=== PATIENT | female | born 1935 | race Hispanic/Latino ===

== ENCOUNTER 2018-01-14 12:26 | Observation (INO) | payer OTHER ==
--- NOTE | 2018-01-14 13:03 | RAD REPORT ---
EXAM DESCRIPTION: CT - Ct Stroke Brain Wo Cont - 01/14/2018 12:51 pm CLINICAL HISTORY: DIZZINESS CVA COMPARISON: Head Brain Wo Cont dated 08/07/2016; Head Brain Wo Cont dated 07/18/2016 TECHNIQUE: All CT scans are performed using dose optimization technique as appropriate and may inclu de automated exposure control or mA/KV adjustment according to patient size. FINDINGS: No intracranial hemorrhage, hydrocephalus or extra-axial fluid collection.Mild generalized brain atrophy is present with mild periventricular and deep white matter chronic microvascular ische mu changes.No areas of brain edema or evidence of midline shift. The paranasal sinuses and mastoids are clear. The calvarium is intact. IMPRESSION: No acute intracranial abnormality. The findings were discussed with Dr. French on 01/14/2018 at 12:55 p.m. by telephone.
--- NOTE | 2018-01-14 13:17 | RAD REPORT ---
EXAM DESCRIPTION: RAD - Chest Single View - 01/14/2018 1:11 pm CLINICAL HISTORY: Hypertension Chest pain. COMPARISON: Chest Single View dated 08/07/2016; Chest Single View dated 07/19/2016; Chest Single View dated 07/18/2016; CHEST SINGLE VIEW dated 10/16/2011 FINDINGS: Portable technique limits examination quality. The lungs are grossly clear. The heart is normal in size. No displaced fractures. IMPRESSION: No acute intrathoracic process suspected.
[2018-01-14] MEDS ORDERED: ENALAPRILAT 1.25 MG/ML VIAL IV ONE (13:18)
[2018-01-14 13:23] LABS: Albumin 3.5 g/dL (3.4-5.0); Bilirubin Direct 0.2 mg/dL (0-0.2); Bilirubin Total 0.6 mg/dL (0.2-1.0); Magnesium 1.8 mg/dL (1.8-2.4); Potassium 3.3 mmol/L (3.5-5.1); Protein, Total 7.6 g/dL (6.4-8.2)
[2018-01-14 13:33] LABS: Protime INR 0.96
[2018-01-14 13:35] LABS: Absolute Lymphocytes (CBC) 1.5 K/uL (0.7-4.9); Absolute Monocytes 0.6 K/uL (0.1-1.3); Absolute Neutrophil 6.1 K/uL (1.8-8.0); Basophils % 1.2 % (0-1.3); Eosinophils % 0.5 % (0-4.4); Lymphocytes % 18.3 % (15.3-44.8); MCH 29.2 pg (27.0-35.0); MCV 87.3 fL (80-100); MPV 9.8 fL (7.6-11.3); Monocytes % 7.3 % (3.3-12.3); RBC Red Blood Cell Count 4.35 M/uL (3.86-4.86)
[2018-01-14 15:48] LABS: Urine Blood NEGATIVE (NEG); Urine Glucose 1+ (NEG); Urine Protein NEGATIVE (NEG)
--- NOTE | 2018-01-14 16:19 | EDPHYS ---
Physician Documentation [facility] Name: Valerie Hart Age: 82 yrs Sex: Female : 1935 Arrival Date: 01/14/2018 Time: 12:29 Bed 20 Private MD: Ted Méndez F ED Physician Maurice French HPI: 01/14 12:30 This 82 yrs old Female presents to ER via Wheelchair with complaints of gs Dizziness. 16:09 The patient presents with feeling faint, feeling off balance. Onset: The gs symptoms/episode began/occurred acutely, just prior to arrival, 1 hour(s) ago, at 11:30. Modifying factors: the symptoms are aggravated by standing up. Associated signs and symptoms: Pertinent negatives: agitation, blurred vision, chest pain, confusion. Severity of symptoms: At their worst the symptoms were severe in the emergency department the symptoms have improved moderately. The patient has not experienced similar symptoms in the past. The patient has not recently seen a physician. 16:18 Associated signs and symptoms: Pertinent positives: near-syncope. gs Historical: - Allergies: 12:39 Vnyhctt-Npv-Twt Reductase Inhibitors; la1 - Home Meds: 13:07 Humulin R 100 unit/mL soln 5 units with meals [Active]; metformin 1,000 mg Oral tab 1 em tab 2 times per day [Active]; lisinopril 20 mg Oral tab 1 tab once daily [Active]; 17:55 Lantus 100 unit/mL Sub-Q soln 40 units daily [Active]; metoprolol tartrate 50 mg oral em tab 1 tab 2 times per day [Active]; - PMHx: 12:39 Diabetes - NIDDM; Hypertension; la1 - Immunization history:: Adult Immunizations unknown. - Social history:: Smoking status: unknown. - Ebola Screening: : No symptoms or risks identified at this time. ROS: 16:09 All other systems are negative. gs Exam: 16:09 Head/Face: Normocephalic, atraumatic. Eyes: Pupils equal round and reactive to light, gs extra-ocular motions intact. Lids and lashes normal. Conjunctiva and sclera are non-icteric and not injected. Cornea within normal limits. Periorbital areas with no swelling, redness, or edema. ENT: Nares patent. No nasal discharge, no septal abnormalities noted. Tympanic membranes are normal and external auditory canals are clear. Oropharynx with no redness, swelling, or masses, exudates, or evidence of obstruction, uvula midline. Mucous membranes moist. Neck: Trachea midline, no thyromegaly or masses palpated, and no cervical lymphadenopathy. Supple, full range of motion without nuchal rigidity, or vertebral point tenderness. No Meningismus. Chest/axilla: Normal chest wall appearance and motion. Nontender with no deformity. No lesions are appreciated. Cardiovascular: Regular rate and rhythm with a normal S1 and S2. No gallops, murmurs, or rubs. Normal PMI, no JVD. No pulse deficits. Respiratory: Lungs have equal breath sounds bilaterally, clear to auscultation and percussion. No rales, rhonchi or wheezes noted. No increased work of breathing, no retractions or nasal flaring. Abdomen/GI: Soft, non-tender, with normal bowel sounds. No distension or tympany. No guarding or rebound. No evidence of tenderness throughout. Back: No spinal tenderness. No costovertebral tenderness. Full range of motion. Skin: Warm, dry with normal turgor. Normal color with no rashes, no lesions, and no evidence of cellulitis. MS/ Extremity: Pulses equal, no cyanosis. Neurovascular intact. Full, normal range of motion. Neuro: Awake and alert, GCS 15, oriented to person, place, time, and situation. Cranial nerves II-XII grossly intact. Motor strength 5/5 in all extremities. Sensory grossly intact. Cerebellar exam normal. Normal gait. 16:09 Constitutional: The patient appears alert, awake. 16:09 ECG was reviewed by the Attending Physician. Vital Signs: 12:39 BP 247 / 88; Pulse 73; Resp 16; Temp 97.3; Pulse Ox 100% on R/A; Weight 61.69 kg; la1 Height 5 ft. 4 in. (162.56 cm); 13:21 BP 216 / 77; Pulse 69; Resp 16; Pulse Ox 100% on R/A; la1 13:45 BP 180 / 55; Pulse 62; Resp 15; Pulse Ox 97% on R/A; em 14:04 BP 182 / 58; Pulse 70; Resp 18; Pulse Ox 100% on R/A; Pain 0/10; em 14:24 BP 168 / 52; Pulse 65; Resp 14; Pulse Ox 98% on R/A; em 15:00 BP 184 / 59; Pulse 67; Resp 18; Pulse Ox 99% on R/A; Pain 0/10; em 15:30 BP 183 / 92; Pulse 66; Resp 16; Pulse Ox 99% on R/A; em 16:29 BP 201 / 65; Pulse 67; Resp 16; Pulse Ox 99% on R/A; em 17:23 BP 206 / 61; Pulse 63; Resp 18; Pulse Ox 100% on R/A; Pain 0/10; em 17:53 BP 210 / 69; Pulse 65; Resp 17; Temp 97.7; Pulse Ox 99% on R/A; Pain 0/10; em 12:39 Body Mass Index 23.34 (61.69 kg, 162.56 cm) la1 NIH Stroke Scale Scores: 12:39 NIHSS Score: 1 la1 16:09 NIHSS Score: 0 gs MDM: 12:58 Patient medically screened. 16:09 Differential diagnosis: cardiac arrhythmia, CVA, TIA, vertigo. Data reviewed: vital gs signs, nurses notes. Response to treatment: the patient's symptoms have markedly improved after treatment. ED course: NO TPA NOT A STROKE SYMPTOMS COMPLETELY RESOLVED. 01/14 12:59 Order name: Basic Metabolic Panel; Complete Time: 13:37 01/14 12:59 Order name: CBC with Diff; Complete Time: 13:37 01/14 12:59 Order name: CPK; Complete Time: 13:37 01/14 12:59 Order name: LFT's; Complete Time: 13:37 01/14 12:59 Order name: Magnesium; Complete Time: 13:37 01/14 12:59 Order name: NT PRO-BNP; Complete Time: 13:37 01/14 12:44 Order name: CT Stroke Brain w/o Contrast; Complete Time: 13:37 la1 01/14 12:59 Order name: PT-INR; Complete Time: 13:37 01/14 12:59 Order name: Troponin (emerg Dept Use Only); Complete Time: 13:37 01/14 12:59 Order name: XRAY Chest (1 view); Complete Time: 13:37 01/14 15:35 Order name: Urine Dipstick--Ancillary (enter results); Complete Time: 16:00 ag 01/14 16:28 Order name: Troponin I [facility] 01/14 16:28 Order name: Troponin I [facility] 01/14 16:28 Order name: Troponin I [facility] 01/14 12:59 Order name: EKG; Complete Time: 12:59 01/14 12:59 Order name: Cardiac monitoring; Complete Time: 13:06 01/14 12:59 Order name: EKG - Nurse/Tech; Complete Time: 13:06 01/14 12:59 Order name: IV Saline Lock; Complete Time: 13:06 01/14 12:59 Order name: Labs collected and sent; Complete Time: 13:06 01/14 12:59 Order name: O2 Per Protocol; Complete Time: 13:06 01/14 12:59 Order name: O2 Sat Monitoring; Complete Time: 13:06 01/14 12:59 Order name: Urine Dipstick-Ancillary (obtain specimen); Complete Time: 17:09 01/14 16:28 Order name: Consistent Carb (ADA) [address] [facility] 01/14 16:28 Order name: Stroke Protocol EDMS EC:09 Rate is 76 beats/min. Rhythm is regular. ME interval is normal. QRS interval is gs prolonged. QT interval is normal. Q waves are Old in lead V1. T waves are Flattened. Clinical impression: NSR w/ Non-specific ST/T Changes. Interpreted by me. Administered Medications: 13:21 Drug: Enalaprilat 0.625 mg Route: IV; Rate: calculated rate; Site: left antecubital; la1 13:23 Follow up: IV Status: Completed infusion la1 16:41 Drug: Aspirin Chewable Tablet 324 mg Route: PO; em 16:58 Follow up: Response: No adverse reaction em 17:35 Drug: Metoprolol 50 mg Route: PO; em 18:01 Follow up: Response: No adverse reaction em Point of Care Testing: Blood Glucose: 12:39 Blood Glucose: 158 mg/dL; la1 Ranges: Critical Glucose Levels:Adult <50 mg/dl or >400 mg/dl <40 mg/dl or >180 mg/dl Disposition: 01/14/18 16:18 Hospitalization ordered by Ted Méndez for Observation. Preliminary diagnosis are Dizziness and giddiness, Syncope and collapse. - Bed requested for Telemetry/MedSurg (observation). - Status is Observation. em - Condition is Stable. - Problem is new. - Symptoms have improved. UTI on Admission? No NIH Stroke Scale - NIH Stroke Score Date: 01/14/2018 Time: 12:39 Total Score = 1 1a. Level of Consciousness (LOC) - 0(Alert) 1b. Level of Consciousness (LOC) (Year \T\ Age) - 0(Both) 1c. LOC Commands (Open \T\ Closes Eyes/Associate Scientist) - 0(Both) 2. Best Gaze (Lateral Gaze Paresis) - 0(Normal) 3. Visual Field Loss - 0(No visual loss) 4. Facial Palsy - 1(Minor Paralysis) 5a. Left Arm: Motor (10-second hold) - 0(No drift) 5b. Right Arm: Motor (10-second hold) - 0(No drift) 6a. Left Leg: Motor (5-second hold - always test supine) - 0(No drift) 6b. Right Leg: Motor (5-second hold - always test supine) - 0(No drift) 7. Limb Ataxia (finger/nose \T\ heel/guerrero - test with eyes open) - 0(Absent) 8. Sensory Loss (pinprick arms/legs/face) - 0(Normal) 9. Best Language: Aphasia (description/naming/reading) - 0(No aphasia) 10. Dysarthria (speech clarity - read or repeat words) - 0(Normal) 11. Extinction and Inattention (visual/tactile/auditory/spatial/personal) - 0(No abnormality) Initials: la1 NIH Stroke Scale - NIH Stroke Score Date: 01/14/2018 Time: 16:09 Total Score = 0 1a. Level of Consciousness (LOC) - 0(Alert) 1b. Level of Consciousness (LOC) (Year \T\ Age) - 0(Both) 1c. LOC Commands (Open \T\ Closes Eyes/Associate Scientist) - 0(Both) 2. Best Gaze (Lateral Gaze Paresis) - 0(Normal) 3. Visual Field Loss - 0(No visual loss) 4. Facial Palsy - 0(Normal) 5a. Left Arm: Motor (10-second hold) - 0(No drift) 5b. Right Arm: Motor (10-second hold) - 0(No drift) 6a. Left Leg: Motor (5-second hold - always test supine) - 0(No drift) 6b. Right Leg: Motor (5-second hold - always test supine) - 0(No drift) 7. Limb Ataxia (finger/nose \T\ heel/guerrero - test with eyes open) - 0(Absent) 8. Sensory Loss (pinprick arms/legs/face) - 0(Normal) 9. Best Language: Aphasia (description/naming/reading) - 0(No aphasia) 10. Dysarthria (speech clarity - read or repeat words) - 0(Normal) 11. Extinction and Inattention (visual/tactile/auditory/spatial/personal) - 0(No abnormality) Initials: Signatures: Dispatcher [employer] Ami Calabrese RN RN Wayne Prasad LVN LVN Jason Blevins RN RN la1 Lavern Cavazos Gregory, MD MD Corrections: (The following items were deleted from the chart) 16:16 16:09 Onset: The symptoms/episode began/occurred acutely, just prior to gs arrival, 1 hour(s) ago, 16:16 16:09 This 82 yrs old Female presents to ER via Wheelchair with complaints of Dizziness. 16:53 16:18 Hospitalization Ordered by Ted Méndez MD for Observation. Preliminary ag diagnosis is Dizziness and giddiness; Syncope and collapse. Bed requested for Telemetry/MedSurg (observation). Status is Observation. Condition is Stable. Problem is new. Symptoms have improved. UTI on Admission? No. gs 16:53 16:53 01/14/2018 16:18 Hospitalization Ordered by Ted Méndez MD for dw Observation. Preliminary diagnosis is Dizziness and giddiness; Syncope and collapse. Bed requested for Telemetry/MedSurg (observation). Status is Observation. Condition is Stable. Problem is new. Symptoms have improved. UTI on Admission? No. ag 17:55 13:07 Home Meds: Lantus 100 unit/mL Sub-Q soln 65 units daily; em em 17:55 13:07 Home Meds: Metoprolol Tartrate Oral; em em 18:02 16:53 01/14/2018 16:18 Hospitalization Ordered by Ted Méndez MD for em Observation. Preliminary diagnosis is Dizziness and giddiness; Syncope and collapse. Bed requested for Telemetry/MedSurg (observation). Status is Observation. Condition is Stable. Problem is new. Symptoms have improved. UTI on Admission? No. dw
--- NOTE | 2018-01-14 16:19 | ER ---
Nurse's Notes [facility] Name: Valerie Hart Age: 82 yrs Sex: Female : 1935 Arrival Date: 01/14/2018 Time: 12:29 Bed 20 Private MD: Ted Méndez F Diagnosis: Dizziness and giddiness;Syncope and collapse Presentation: 01/14 12:37 Presenting complaint: Patient states: Sudden onset dizziness at 1200 today, no acute la1 neurological deficits noted. Transition of care: patient was not received from another setting of care. Onset of symptoms was January 14, 2018. Risk Assessment: Do you want to hurt yourself or someone else? Patient reports no desire to harm self or others. Initial Sepsis Screen: Does the patient meet any 2 criteria? No. Patient's initial sepsis screen is negative. Does the patient have a suspected source of infection? No. Patient's initial sepsis screen is negative. Care prior to arrival: None. 12:37 Method Of Arrival: Wheelchair la1 12:37 Acuity: FORD 2 la1 Historical: - Allergies: 12:39 Zqpchlx-Mac-Yvg Reductase Inhibitors; la1 - Home Meds: 13:07 Humulin R 100 unit/mL soln 5 units with meals [Active]; metformin 1,000 mg Oral tab 1 em tab 2 times per day [Active]; lisinopril 20 mg Oral tab 1 tab once daily [Active]; 17:55 Lantus 100 unit/mL Sub-Q soln 40 units daily [Active]; metoprolol tartrate 50 mg oral em tab 1 tab 2 times per day [Active]; - PMHx: 12:39 Diabetes - NIDDM; Hypertension; la1 - Immunization history:: Adult Immunizations unknown. - Social history:: Smoking status: unknown. - Ebola Screening: : No symptoms or risks identified at this time. Screenin:35 Abuse screen: Denies threats or abuse. Nutritional screening: No deficits noted. em Tuberculosis screening: No symptoms or risk factors identified. Patient has been NPO before screening. The patient is alert, able to follow commands. The patient does not exhibit slurred or garbled speech The patient is not exhibiting difficulty speaking. The patient does not exhibit difficulty understanding words. The patient is able to swallow own secretions with no drooling or need for suction. Patient tolerated one teaspoon of water. No drooling, immediate coughing, gurgling, or clearing of the throat was noted. The patient tolerated 90mL of water. No drooling, immediate coughing, gurgling, or clearing of the throat was noted. The patient passed the bedside swallow screening. Oral medications may be given as ordered. Contact Physician for further diet orders. Provider notified of bedside swallow screening results: Maurice French MD. Fall Risk None identified. Assessment: 12:43 Reassessment: Code stroke called 1240, in CT at 1242. la1 12:51 Reassessment: Dr. Saeed reports CT was negative, Dr. French notified. iw 12:53 Reassessment: Dr. French at bedside. em 12:55 General: Appears uncomfortable, Behavior is calm, cooperative, anxious. Pain: Denies em pain. Neuro: Level of Consciousness is awake, alert, obeys commands, Oriented to person, place, time, situation, Magnetic Tape Typewriter Operator are equal bilaterally Moves all extremities. Gait is steady, Speech is normal, Facial symmetry appears normal, Pupils are PERRLA, Intact. Cardiovascular: Capillary refill < 3 seconds Patient's skin is warm and dry. Respiratory: Airway is patent Respiratory effort is even, unlabored, Respiratory pattern is regular, symmetrical, Breath sounds are clear bilaterally. GI: Abdomen is non-distended. : No signs and/or symptoms were reported regarding the genitourinary system. EENT: No signs and/or symptoms were reported regarding the EENT system. Derm: Skin is intact, Skin is pink, warm \T\ dry. Musculoskeletal: Circulation, motion, and sensation intact. Capillary refill < 3 seconds, Range of motion: intact in all extremities. 13:10 Reassessment: Patient appears in no apparent distress at this time. I agree with above iw assessment by Wayne Jara LVN. 13:34 Reassessment: Patient appears in no apparent distress at this time. Patient and/or em family updated on plan of care and expected duration. Pain level reassessed. Patient is alert, oriented x 3, equal unlabored respirations, skin warm/dry/pink. Patient denies pain at this time. 14:04 Reassessment: Patient appears in no apparent distress at this time. pt reports symptoms em have resolved. 15:00 Reassessment: Patient appears in no apparent distress at this time. Patient and/or em family updated on plan of care and expected duration. Pain level reassessed. Patient is alert, oriented x 3, equal unlabored respirations, skin warm/dry/pink. Patient denies pain at this time. Patient states feeling better. Patient states symptoms have improved. 15:30 Reassessment: Patient appears in no apparent distress at this time. Patient and/or em family updated on plan of care and expected duration. Pain level reassessed. Patient is alert, oriented x 3, equal unlabored respirations, skin warm/dry/pink. pt ambulated to restroom with assistance and became dizzy, pt ambulated back to bed and assisted back into bed, BP 183/92, HR 68, SPO2 99% RA, Dr. French notified. 16:29 Reassessment: Patient appears in no apparent distress at this time. Patient and/or em family updated on plan of care and expected duration. Pain level reassessed. Patient is alert, oriented x 3, equal unlabored respirations, skin warm/dry/pink. Patient states symptoms have improved. 17:15 Reassessment: Patient appears in no apparent distress at this time. attempted to call em report to the floor, unable due to nurse starting blood products, will attempt again later. 17:35 Reassessment: Patient appears in no apparent distress at this time. BP 206/61, HR em 57-63, Dr. French notified, pt can take home medications, Metoprolol 50 mg given at this time. Vital Signs: 12:39 BP 247 / 88; Pulse 73; Resp 16; Temp 97.3; Pulse Ox 100% on R/A; Weight 61.69 kg; la1 Height 5 ft. 4 in. (162.56 cm); 13:21 BP 216 / 77; Pulse 69; Resp 16; Pulse Ox 100% on R/A; la1 13:45 BP 180 / 55; Pulse 62; Resp 15; Pulse Ox 97% on R/A; em 14:04 BP 182 / 58; Pulse 70; Resp 18; Pulse Ox 100% on R/A; Pain 0/10; em 14:24 BP 168 / 52; Pulse 65; Resp 14; Pulse Ox 98% on R/A; em 15:00 BP 184 / 59; Pulse 67; Resp 18; Pulse Ox 99% on R/A; Pain 0/10; em 15:30 BP 183 / 92; Pulse 66; Resp 16; Pulse Ox 99% on R/A; em 16:29 BP 201 / 65; Pulse 67; Resp 16; Pulse Ox 99% on R/A; em 17:23 BP 206 / 61; Pulse 63; Resp 18; Pulse Ox 100% on R/A; Pain 0/10; em 17:53 BP 210 / 69; Pulse 65; Resp 17; Temp 97.7; Pulse Ox 99% on R/A; Pain 0/10; em 12:39 Body Mass Index 23.34 (61.69 kg, 162.56 cm) la1 NIH Stroke Scale Scores: 12:39 NIHSS Score: 1 la1 16:09 NIHSS Score: 0 ED Course: 12:29 Patient arrived in ED. mr 12:29 Ted Méndez MD is Private Physician. mr 12:38 Triage completed. la1 12:39 Arm band placed on left wrist. la1 12:51 CT Stroke Brain w/o Contrast In Process Unspecified. EDMS 12:53 Maurice French MD is Attending Physician. gs 12:55 Patient has correct armband on for positive identification. Placed in gown. Bed in low em position. Call light in reach. Side rails up X2. Adult w/ patient. 12:56 Wayne Jara LVN is Primary Nurse. em 13:09 EKG done, by isotope technologist. reviewed by Maurice French MD. dt2 13:12 XRAY Chest (1 view) In Process Unspecified. EDMS 16:17 Ted Méndez MD is Hospitalizing Provider. gs 16:58 No provider procedures requiring assistance completed. IV discontinued, intact, em bleeding controlled, No redness/swelling at site. Pressure dressing applied. Administered Medications: 13:21 Drug: Enalaprilat 0.625 mg Route: IV; Rate: calculated rate; Site: left antecubital; la1 13:23 Follow up: IV Status: Completed infusion la1 16:41 Drug: Aspirin Chewable Tablet 324 mg Route: PO; em 16:58 Follow up: Response: No adverse reaction em 17:35 Drug: Metoprolol 50 mg Route: PO; em 18:01 Follow up: Response: No adverse reaction em Point of Care Testing: Blood Glucose: 12:39 Blood Glucose: 158 mg/dL; la1 Ranges: Outcome: 16:18 Decision to Hospitalize by Provider. 17:52 Admitted to Tele accompanied by tech, family with patient, via stretcher, room 425, em with chart, Report called to FIOR Whitt 17:52 Condition: good 17:52 Instructed on the need for admit, Demonstrated understanding of instructions. 18:02 Patient left the ED. em NIH Stroke Scale - NIH Stroke Score Date: 01/14/2018 Time: 12:39 Total Score = 1 1a. Level of Consciousness (LOC) - 0(Alert) 1b. Level of Consciousness (LOC) (Year \T\ Age) - 0(Both) 1c. LOC Commands (Open \T\ Closes Eyes/Rubber Stamp Dies Inspector) - 0(Both) 2. Best Gaze (Lateral Gaze Paresis) - 0(Normal) 3. Visual Field Loss - 0(No visual loss) 4. Facial Palsy - 1(Minor Paralysis) 5a. Left Arm: Motor (10-second hold) - 0(No drift) 5b. Right Arm: Motor (10-second hold) - 0(No drift) 6a. Left Leg: Motor (5-second hold - always test supine) - 0(No drift) 6b. Right Leg: Motor (5-second hold - always test supine) - 0(No drift) 7. Limb Ataxia (finger/nose \T\ heel/guerrero - test with eyes open) - 0(Absent) 8. Sensory Loss (pinprick arms/legs/face) - 0(Normal) 9. Best Language: Aphasia (description/naming/reading) - 0(No aphasia) 10. Dysarthria (speech clarity - read or repeat words) - 0(Normal) 11. Extinction and Inattention (visual/tactile/auditory/spatial/personal) - 0(No abnormality) Initials: la1 NIH Stroke Scale - NIH Stroke Score Date: 01/14/2018 Time: 16:09 Total Score = 0 1a. Level of Consciousness (LOC) - 0(Alert) 1b. Level of Consciousness (LOC) (Year \T\ Age) - 0(Both) 1c. LOC Commands (Open \T\ Closes Eyes/Rubber Stamp Dies Inspector) - 0(Both) 2. Best Gaze (Lateral Gaze Paresis) - 0(Normal) 3. Visual Field Loss - 0(No visual loss) 4. Facial Palsy - 0(Normal) 5a. Left Arm: Motor (10-second hold) - 0(No drift) 5b. Right Arm: Motor (10-second hold) - 0(No drift) 6a. Left Leg: Motor (5-second hold - always test supine) - 0(No drift) 6b. Right Leg: Motor (5-second hold - always test supine) - 0(No drift) 7. Limb Ataxia (finger/nose \T\ heel/guerrero - test with eyes open) - 0(Absent) 8. Sensory Loss (pinprick arms/legs/face) - 0(Normal) 9. Best Language: Aphasia (description/naming/reading) - 0(No aphasia) 10. Dysarthria (speech clarity - read or repeat words) - 0(Normal) 11. Extinction and Inattention (visual/tactile/auditory/spatial/personal) - 0(No abnormality) Initials: Signatures: Dispatcher [employer] Juju Orozco mr Marek, Wayne, CHASER TAR CHASER TAR em Yari Dewitt RN RN Jason Garcia RN RN la1 Maurice French MD MD gs Teague, Danielle dt2 Corrections: (The following items were deleted from the chart) 17:55 13:07 Home Meds: Lantus 100 unit/mL Sub-Q soln 65 units daily; [facility] 17:55 13:07 Home Meds: Metoprolol Tartrate Oral; em
[2018-01-14] MEDS ORDERED: ACETAMINOPHEN 500 MG TAB PO PRN (16:21)
[2018-01-14] MEDS ORDERED: ASPIRIN 81 MG CHEWABLE TABLET ONE (16:38)
--- NOTE | 2018-01-14 17:12 | EKG ---
Test Date: 2018-01-14 Test Time: 12:58:32 Auto Body Worker: BRIDGETT MEASUREMENT RESULTS: Intervals: Rate: 76 MT: 154 QRSD: 100 QT: 410 QTc: 461 [place]: P: 49 MT: 154 QRS: -22 T: 103 INTERPRETIVE STATEMENTS: Normal sinus rhythm Nonspecific ST and T wave abnormality Abnormal ECG Compared to ECG 08/07/2016 13:13:23 ST (T wave) deviation now present Left-axis deviation no longer present Myocardial infarct finding no longer present Electronically Signed On 01-14-18 17:10:32 CDT by Rhys Navarro
[2018-01-14] MEDS ORDERED: METOPROLOL TAR 50 MG TAB ONE (17:34)
[2018-01-14 18:40] VITALS: BMI 23.3
[2018-01-14] MEDS ORDERED: MAGNESIUM SULFATE 1 gm IVPB 1 GM/100 ML BAG IV ONE (21:05)
[2018-01-14] MEDS ORDERED: POTASSIUM 25 MEQ EFFERV TAB PO ONE (21:06)
[2018-01-14] MEDS ORDERED: GLUCAGON 1 MG/VIAL IM PRN (21:14)
[2018-01-14] MEDS ORDERED: D50W 25 GM/50 ML SYRINGE IV PRN (21:14)
[2018-01-14] MEDS: NA CHLORIDE 0.9% 1,000 ML IV SCH (21:41)
[2018-01-14] MEDS: METOPROLOL TAR 50 MG TAB PO SCH (22:11)
[2018-01-14] MEDS: METFORMIN HCL 500 MG TAB PO SCH (22:12)
[2018-01-14] MEDS: INSULIN -REGULAR HUMAN 50 UNIT/0.5 ML ML SQ SCH (22:23)
--- NOTE | 2018-01-14 22:45 | RAD REPORT ---
EXAM DESCRIPTION: MRI - Brain W/Wo Cont - 01/14/2018 9:30 pm CLINICAL HISTORY: Dizziness, vertigo, stroke-like symptoms COMPARISON: CT head same date TECHNIQUE: Sagittal and axial T1-weighted images were obtained. Axial PD/heavily T2-weighted and T2- FLAIR images were obtained along with axial DWI/ADC mapping sequences. Coronal heavily T2 weighted s equence obtained. Axial and coronal post-contrast T1-weighted images were also obtained. A 14 ml Mag nevist contrast following utilized. FINDINGS: No intracranial hemorrhage, mass or acute infarction. There is no edema or shift of midli ne structures. No extra-axial fluid collections. [place]-matter/white matter junction is preserved. Sig nal voids are seen as a normal finding in the major intracranial vessels. Mild atrophy and chronic is chemic changes are present. Ventricles are in proportion to volume loss. Post-contrast images show normal enhancement. No dural thickening. Mastoid air cells and paranasal sinuses are clear. IMPRESSION: Negative contrast enhanced MRI of the Brain for acute finding. Mild atrophy and chronic ischemic change.
--- NOTE | 2018-01-14 22:48 | RAD REPORT ---
EXAM DESCRIPTION: MRI - MRA Head Wo Cont - 01/14/2018 9:29 pm CLINICAL HISTORY: Stroke-like symptoms COMPARISON: None. TECHNIQUE: Axial and coronal 3D efbr-zi-ekrcvc image acquisition was performed. 3D rotational images were generated with source and reconstruction images reviewed. FINDINGS: No aneurysm or vascular malformation. No basilar or internal carotid artery stenosis. Bila teral middle cerebral artery branches show atherosclerotic change in the proximal M2 branches. No sig nificant anterior cerebral disease. There is significant atherosclerotic change in the posterior cere bral artery P1 and P2 branches. Right posterior communicating artery is present. IMPRESSION: Significant atherosclerotic change in the bilateral middle and posterior cerebral artery distributions. No stenosis of the basilar or internal carotid arteries.
--- NOTE | 2018-01-14 22:51 | RAD REPORT ---
EXAM DESCRIPTION: MRI - MRA Neck W/Wo Cont - 01/14/2018 9:30 pm CLINICAL HISTORY: Stroke-like symptoms, CVA COMPARISON: MRI and CT study same date TECHNIQUE: MR angiography of the cervical vasculature performed. A 14 milliliter Magnevist contrast volume was utilized. Coronal imaging acquisitions performed. Maximum intensity projection protocol us ed to generate 3D rotational views. FINDINGS: Aortic arch is 3 vessel. No origin stenosis. No vertebral artery origin stenosis seen. Co dominant vertebral arteries show no dissection or significant atherosclerotic change. Common carotid and internal carotid arteries also without evidence for dissection or significant atherosclerotic tommy nge. No aneurysm or vascular malformation. IMPRESSION: Contrast enhanced MRA neck imaging shows no significant vascular finding.
[2018-01-15] MEDS ORDERED: LISINOPRIL 20 MG TAB PO ONE (01:34)
[2018-01-15] MEDS ORDERED: AMLODIPINE 5 MG TAB PO ONE (04:38)
[2018-01-15 05:48] LABS: Absolute Lymphocytes (CBC) 2.4 K/uL (0.7-4.9); Absolute Monocytes 0.6 K/uL (0.1-1.3); Absolute Neutrophil 3.5 K/uL (1.8-8.0); Basophils % 1.8 % (0-1.3); Eosinophils % 1.1 % (0-4.4); Hematocrit 35.6 % (36.0-45.0); Lymphocytes % 35.8 % (15.3-44.8); MCH 30.3 pg (27.0-35.0); MCV 86.4 fL (80-100); MPV 9.8 fL (7.6-11.3); Monocytes % 8.4 % (3.3-12.3); RBC Red Blood Cell Count 4.12 M/uL (3.86-4.86)
[2018-01-15 05:58] LABS: Phosphorus 2.7 mg/dL (2.5-4.9); Potassium 3.7 mmol/L (3.5-5.1)
[2018-01-15] MEDS ORDERED: POTASSIUM 25 MEQ EFFERV TAB PO ONE (06:01)
[2018-01-15] MEDS: NA CHLORIDE 0.9% 1,000 ML IV SCH ×2 (06:28→12:02)
[2018-01-15] MEDS ORDERED: INSULIN -REGULAR HUMAN 50 UNIT/0.5 ML ML SQ SCH (07:30)
[2018-01-15] MEDS: INSULIN -REGULAR HUMAN 50 UNIT/0.5 ML ML SQ SCH ×2 (07:30→11:30)
[2018-01-15] MEDS: METFORMIN HCL 500 MG TAB PO SCH (08:11)
[2018-01-15] MEDS: METOPROLOL TAR 50 MG TAB PO SCH (08:12)
[2018-01-15] MEDS ORDERED: ASPIRIN 81 MG CHEWABLE TABLET PO SCH (09:00)
[2018-01-15] MEDS ORDERED: LISINOPRIL 20 MG TAB PO SCH (09:00)
[2018-01-15] MEDS ORDERED: INSULIN GLARGINE 100 UNITS/ML SQ SCH (09:00)
[2018-01-15] MEDS ORDERED: AMLODIPINE 10 MG TAB PO SCH (09:00)
[2018-01-15 12:31] VITALS: O2SAT 100
[2018-01-15 12:48] VITALS: BP 170/56; TEMP 97.4
--- NOTE | 2018-01-16 12:37 | SS ---
Date of Discharge: 01/15/2018 History Of Present Illness: The patient is an 82-year-old female who has a history of Meniere diseas e, vertigo; however, she was at home when she felt so much dizzy she could not stand up and she felt everything is moving around her. She said she was about to faint, but she did not; however, family a nd her were concerned, she was brought to the emergency room. We put her in for observation for intr actable vertigo along with uncontrolled hypertension. The patient denies any chest pain. No increas ed shortness of breath, and voiced no other complaints. Review of Systems: Neurological: As above. Cardiovascular: No complaint. Genitourinary: No complaint. Skeletomuscular: No complaint. Respiratory: No complaint. Gastrointestinal: No complaint. Past Medical History: 1.Type 2 diabetes. 2.Hypertension. 3.Hyperlipidemia. 4.Meniere disease. Social History: No smoking, alcohol, or drug abuse history. Family History: Noncontributory. Medications: Include amlodipine 5 mg p.o. b.i.d., aspirin 81 mg p.o. daily, Zetia 10 mg p.o. daily, Lantus 65 units subcutaneous daily, regular insulin 5 units subcutaneous before meals, lisinopril 20 mg p.o. daily, metformin 1000 mg p.o. b.i.d., and metoprolol 50 mg p.o. b.i.d. Allergies: NO KNOWN DRUG ALLERGIES. Physical Examination: Vital Signs: Blood pressure 170/55, pulse 64, temperature 97.4. Heart: Regular rate and rhythm. Chest: Clear to auscultation. Abdomen: Soft, benign. Nontender. No hepatosplenomegaly. Bowel sounds are normoactive. Extremities: No edema. No cyanosis. Peripheral pulses are felt. Neurological: Alert and oriented x4. Cranial nerves 2 through 12 intact. Sensory and motor intact. Deep tendon reflexes are normal. Negative Babinski. Diagnostic Data: The patient's brain CT showed no acute changes. Chest x-ray, no acute pathology. CBC nonrevealing. Chemistry nonrevealing except for glucose was in the 250. Cardiac enzymes negativ e. Hospital Course: The patient was admitted for observation. She was started on meclizine along with her home medicines for chronic medical problems, and MRI of the brain and MRA of the carotids were do ne. Those came back negative for any significant vascular obstruction for acute pathology. The nina ent has chronic atherosclerotic ischemic changes, but no acute pathology. The patient's dizziness wa s stopped since she came into the hospital and she was feeling well at this time I think. The patien t is stable enough to be discharged with instructions to use meclizine 25 mg p.o. 3 times a day. I ambreen lso have advised her on a low-salt diet that can also make her vertigo worse and also worsen her bloo d pressure, and I have increased her lisinopril to 30 mg p.o. daily. The patient to follow up with vahid bhatti and bring all her medications on Wednesday. Look discharge orders for details. MFS/MODL Voice ID: [id number] Report ID: [id number]
== END 2018-01-15 16:00 | disposition home or self-care (01) ==
LOC: ER 12:26 → ERHOLD 16:20 → 4TH 17:56
PROVIDERS: ADMIT Internal Medicine; ATTEND Internal Medicine
DX: H81.09 Meniere's disease, unspecified ear (principal); I10 Essential (primary) hypertension; E11.9 Type 2 diabetes mellitus without complications; E78.5 Hyperlipidemia, unspecified
CPT/HCPCS: 36415; 70450; 70544; 70549; 70553; 71045; 80048 ×2; 80076; 81003; 82550; 82962 ×4; 83735 ×2; 83880; 84100; 84484 ×2; 85025 ×2; 85610; 93005; 96374 ×2; 99285; A9577; G0378 ×2; J3475; J7030 ×2

== ENCOUNTER 2022-01-12 17:02 | Observation (INO) | payer OTHER ==
--- OUTSIDE RECORDS SUMMARY | 2022-01-12 17:07 | XMS REPORT | Continuity of Care Document ---
:[address] [facility] t Address [address] [place] [address] [address] [place] [address] Care Team Providers Name Role Phone Asked, No Pcp Primary Care Physician Unavailable Therapy, Adc Covid Infusion Attending Clinician Unavailable Juan C Brown MD Attending Clinician JUAN C BROWN Attending Clinician Unavailable Doctor Unassigned, [employer] Attending Clinician Unavailable CHARLY BELL Attending Clinician Unavailable Payers Payer Name Policy Type Policy Number Effective Date Expiration Date S ource Problems This patient has no known problems. Allergies, Adverse Reactions, Alerts Allergy Allergy Status Severity Reaction(s) Onset Inactive Treating Comm ents Source Name Type Date Date Clinician NETARSUD DRUG Active Unknown-Cmnt Un sh[place] INGREDI 8-05 ity of 00:00: [place] 00 [facility] Branch STATINS- Drug Active SOB Univers HMG-COA Class 8-05 ity of REDUCTAS 00:00: [place] E 00 Medical INHIBITO Branch RS Netarsud Propensi Active Unknown - Uni vers il ty to See comments 805 ity of adverse 00:00: [place] reaction 00 Medical s Branch Statins- Propensi Active Shortness of 0 Univers Hmg-Coa ty to Breath 8-05 ity of Reductas adverse 00:00: [place] e reaction 00 Medical Inhibito s Branch rs NO KNOWN Drug Active Univers ALLERGIE Class ity of S [facility] Social History Social Habit Start Date Stop Date Quantity Comments Source Sex Assigned At [birth year] [facility] [place] 00:00:00 00:00:00 Smoking Status Start Date Stop Date Source Tobacco smoking consumption unknown [facility] [place] Medications Ordered Filled Start Stop Current Ordering Indication Dosage Frequency Signature Comments Components Source Medication Medication Date Date Medication? Clinician (SIG) Name Name tiffanieb 2020- No [id number] 1200mg Univers -imdevimab 01-02 ity of (REGEN-COV 14:15: 14:22 [place] (EUA)) 00 :00 Medical 1,200 mg in Branch NaCl 0.9% (NS) 60 mL IV infusion casiriyvettemab 2020- No [id number] 1200mg 1,200 mg, Univers -imdevimab 01-02 IV ity of (REGEN-COV 14:15: 14:22 [place], [place] (EUA[place] 00 :00 ONCE, Luz Medical 1,200 mg in 01/02/21 at [facility] NaCl 0.9% 0915, For (NS) 60 mL 1 IV infusion dose
Ad liquor bridge operator as an IV infusion via pump or gravity over at least 60 minutes through an intravenou s line containing a sterile, in-line or add-on 0.2-micron polyethers ulfone (PES) filter.&nb sp;Stable 36 hours refrigerat ed; 4 hours at room temperatur e. &nbs p;
No known No Univers medications [facility] Vital Signs Vital Name Observation Time Observation Value Comments Source Systolic blood 2021-01-02 15:00:00 146 mm[Hg] Univer sity of pressure [facility] Diastolic blood 2021-01-02 15:00:00 58 mm[Hg] [facility] Heart rate 2021-01-02 15:00:00 100 /min [facility] Body temperature 2021-01-02 15:00:00 37 Erika [facility] Respiratory rate 2021-01-02 15:00:00 18 /min [facility] Oxygen saturation in 2021-01-02 15:00:00 99 /min [facility] Arterial blood by [facility] [place] [facility] Pulse oximetry [place] Body height 2021-01-02 13:09:00 162.6 cm [facility] Body weight 2021-01-02 13:09:00 60.782 kg [facility] BMI 2021-01-02 13:09:00 23.00 kg/m2 [facility] Procedures Procedure Date / Time Performed Performing Clinician Alexsandra bhatti [id number] CONSENT 2021-01-02 05:01:00 Doctor Unassigned, No Unive [facility] Plan of Care Planned Activity Planned Date Details Comments Source Future Scheduled 2021-07-01 COVID-19 VACCINE (1) [facility] Test 19:31:02 [code = COVID-19 VACCINE (1)] Future Scheduled 2021-07-01 65+ [facility]OCOCCAL [facility] Test 19:31:02 VACCINE (1 of 2 - PPSV23) [code = 65+ PNEUMOCOCCAL VACCINE (1 of 2 - PPSV23)] Future Scheduled 2021-07-01 DIABETES: RETINAL EYE [facility] Test 19:31:02 EXAM [code = DIABETES: RETINAL EYE EXAM] Future Scheduled 2021-07-01 [facility] 19:31:02 [code = DIABETIC FOOT EXAM] Future Scheduled 2021-07-01 URINE [facility]CROALBUMIN [facility] Test 19:31:02 [code = URINE MICROALBUMIN] Future Scheduled 2021-07-01 SHINGLES VACCINES (#1) [facility] 19:31:02 [code = SHINGLES VACCINES (#1)] Future Scheduled 2021-07-01 INFLUENZA VACCINE [facility] Test 19:31:02 [code = INFLUENZA VACCINE] Encounters Start End Encounter Admission Attending Care Care Encounter Source Date/Time Date/Time Type Type Clinicians Facility Department ID 2021-01-02 2021-01-02 Nurse Therapy, Adc Covid Infusion [facility] [id number] Univers 07:33:12 08:03:12 Visit Juan C Brown [id number] kp mckenzie [place] [id number] [facility] [id number] [facility] 053 Branch 2021-01-02 2021-01-02 Outpatient R BEATRIZ [facility] [id number] Univers 08:00:00 08:00:00 JUAN C goodrich [facility] 2021-01-02 2021-01-02 Orders Doctor MARTA [id number] 87 [facility] 00:00:00 00:00:00 Only Unassigned, [place] [id number] ity of [employer] [facility] [id number] [place] [id number] [place] [id number] Branch 2020-06-11 2020-06-11 Outpatient [facility] [id number] [place] 00:00:00 00:00:[address] Results This patient has no known results.
[2022-01-12 18:01] LABS: Absolute Lymphocytes (CBC) 1.6 K/uL (0.7-4.9); Hematocrit 38.1 % (36.0-45.0); Lymphocytes % 11.9 % (15.3-44.8); MCV 85.5 fL (80-100); MPV 8.9 fL (7.6-11.3); RBC Red Blood Cell Count 4.46 M/uL (3.86-4.86)
[2022-01-12 18:20] LABS: Potassium 3.6 mmol/L (3.5-5.1); Troponin High Sensitivity 7.6 pg/mL (<58.9)
--- NOTE | 2022-01-12 18:40 | RAD REPORT ---
EXAM DESCRIPTION: Ramiro Single View01/12/2022 6:20 pm CLINICAL HISTORY: Syncope COMPARISON: 2017 FINDINGS: The lungs appear clear of acute infiltrate. The heart is normal size IMPRESSION: No acute abnormalities displayed
[2022-01-12 18:52] LABS: Urine Blood Negative (Negative); Urine Glucose Negative (Negative); Urine Protein Negative (Negative)
[2022-01-12 19:07] LABS: Specific Gravity 1.015 (1.005-1.030); Urine Bilirubin Negative (Negative); Urine Blood Negative (Negative); Urine Clarity Clear (Clear); Urine Color Yellow (Yellow); Urine Glucose Negative (Negative); Urine Protein Negative (Negative); Urine Urobilinogen 0.2 mg/dL (0.2-1.0)
--- NOTE | 2022-01-12 19:22 | RAD REPORT ---
EXAM DESCRIPTION: CT - Head Brain Wo Cont - 01/12/2022 7:15 pm CLINICAL HISTORY: Syncope COMPARISON: 2018 TECHNIQUE: Computed axial tomography of the head was obtained. IV contrast was not requested. All CT scans are performed using dose optimization technique as appropriate and may include automated exposure control or mA/KV adjustment according to patient size. FINDINGS: An intracranial bleed is not seen . The ventricles are normal in caliber. No extra-axial fluid collection is noted. 3 centimeter low-density area left occipital lobe probably an old infarction. Fluid within the sinuses/ mastoids is not seen. IMPRESSION: No acute intracranial abnormality is seen. If patient's symptoms persist MRI of the bra in would be recommended.
[2022-01-12] MEDS ORDERED: HYDRALAZINE HCL 20 MG/ML VIAL ONE (20:17)
--- NOTE | 2022-01-12 21:06 | ER ---
Nurse's Notes [facility] Name: Valerie Hart Age: 86 yrs Sex: Female : 1935 Arrival Date: 01/12/2022 Time: 17:07 Bed 3 Private MD: Diagnosis: Syncope;Essential (primary) hypertension Presentation: 01/12 17:07 Chief complaint: EMS states: patient was at the school with family and had a syncopal bm7 episode and had positive LOC for an unknown amount of time. Patient did not fall but fell into family's arms. Coronavirus screen: At this time, the client does not indicate any symptoms associated with coronavirus-19. Ebola Screen: No symptoms or risks identified at this time. Initial Sepsis Screen: Does the patient meet any 2 criteria? No. Patient's initial sepsis screen is negative. Does the patient have a suspected source of infection? No. Patient's initial sepsis screen is negative. Risk Assessment: Do you want to hurt yourself or someone else? Patient reports no desire to harm self or others. Onset of symptoms was January 12, 2022. Care prior to arrival: IV initiated. 20 GA, in the right forearm, Glucose check: 106. 17:07 Method Of Arrival: EMS: [facility] 7 17:07 Acuity: FORD 2 bm7 Triage Assessment: 17:10 General: Appears in no apparent distress. comfortable, well groomed, well developed, bm7 Behavior is calm, cooperative. Pain: Denies pain. EENT: No deficits noted. No signs and/or symptoms were reported regarding the EENT system. Neuro: Level of Consciousness is awake, alert, Oriented to place, Commodity Trader are equal bilaterally Moves all extremities. Speech is normal, Facial symmetry appears normal. Cardiovascular: Chest pain is denied. Respiratory: No deficits noted. Denies shortness of breath. GI: No deficits noted. No signs and/or symptoms were reported involving the gastrointestinal system. pt has a glucose monitor on left upper arm and pump on left lower abdomen. : Urine is cloudy. Derm: No deficits noted. No signs and/or symptoms reported regarding the dermatologic system. Musculoskeletal: No deficits noted. No signs and/or symptoms reported regarding the musculoskeletal system. Historical: - Allergies: 17:10 Ksxwxtm-Shl-Tue Reductase Inhibitors; bm7 - PMHx: 17:10 Diabetes - NIDDM; Hypertension; Diabetes mellitus; Dementia; bm7 - Immunization history:: Adult Immunizations unknown. - Social history:: Smoking status: unknown. Screenin:12 Abuse screen: Denies threats or abuse. Nutritional screening: No deficits noted. bm7 Tuberculosis screening: No symptoms or risk factors identified. Fall Risk Fall in past 12 months (25 points). Mental Status- Overestimates/Forgets Limitations (15 pts.). Assessment: 17:12 Reassessment: No changes from previously documented assessment. bm7 17:32 Reassessment: No changes from previously documented assessment. Patient and/or family ll1 updated on plan of care and expected duration. Pain level reassessed. 18:24 Reassessment: No changes from previously documented assessment. Patient and/or family ll1 updated on plan of care and expected duration. Pain level reassessed. 19:12 Reassessment: Patient and/or family updated on plan of care and expected duration. Pain bm7 level reassessed. Patient is alert, oriented x 3, equal unlabored respirations, skin warm/dry/pink. Vital Signs: 17:07 BP 187 / 64; Pulse 58; Resp 18; Temp 97.7(TE); Pulse Ox 100% on R/A; Weight 63.5 kg bm7 (R); Height 5 ft. 2 in. (157.48 cm); Pain 0/10; 18:25 BP 199 / 63; Pulse 52; ll1 20:13 BP 216 / 66; Pulse 66; Resp 16; Pulse Ox 100% on R/A; Pain 0/10; bm7 17:07 Body Mass Index 25.61 (63.50 kg, 157.48 cm) bm7 ED Course: 17:07 Patient arrived in ED. bm7 17:07 Romel Hanson DO is Attending Physician. ms3 17:10 Triage completed. bm7 17:10 Arm band placed on right wrist. bm7 17:12 Patient has correct armband on for positive identification. Placed in gown. Bed in low bm7 position. Call light in reach. Side rails up X2. Adult w/ patient. Client placed on continuous cardiac and pulse oximetry monitoring. NIBP monitoring applied. patient monitor on. Warm blanket given. Repositioned patient. Cleaned of incontinence. 17:26 Trinh Aviles, RN is Primary Nurse. ll1 17:30 Sandra Alcantar, RN is Primary Nurse. kr3 17:52 Initial lab(s) drawn, by ED staff, sent to lab. Patient maintains SpO2 saturation bm7 greater than 95% on room air. 18:22 XRAY Chest (1 view) In Process Unspecified. EDMS 18:52 Assisted to bedside commode. bm7 18:52 Urine collected: clean catch specimen, cloudy. bm7 19:07 Attending Physician role handed off by Romel Hanson DO 7 19:07 Apollo Mcrae MD is Attending Physician. 7 19:16 CT Head Brain wo Cont In Process Unspecified. EDMS 21:05 Viet Argueta MD is Hospitalizing Provider. [facility] 01/13 07:53 Primary Nurse role handed off by Sandra Alcantar RN bd Administered Medications: 01/12 20:13 Drug: hydrALAZINE 5 mg Route: IVP; Site: right forearm; bm7 22:33 Follow up: Response: Blood pressure is elevated bm7 22:25 Not Given (PER MD DISCRETION DUE TO BP 164/58 P- 56f): hydrALAZINE 5 mg IVP once bm7 Medication: 17:12 VIS not applicable for this client. bm7 Output: 18:53 Urine: 200ml; Total: 200ml. bm7 Outcome: 21:06 Decision to Hospitalize by Provider. [facility] 01/13 09:01 Patient left the ED. vg1 Signatures: Dispatcher [employer] EDMS Glenny Gonzalez Victoria, RN RN vg1 Trinh Aviles, RN RN 1 Romel Hanson DO DO ms3 Apollo Mcrae MD MD 7 Evi Gaytan RN RN 7 Sandra Alcantar, FIOR RN kr3
--- NOTE | 2022-01-12 21:07 | EDPHYS ---
Physician Documentation [facility] Name: Valerie Hart Age: 86 yrs Sex: Female : 1935 Arrival Date: 01/12/2022 Time: 17:07 Bed 3 Private MD: ED Physician Apollo Mcrae HPI: 01/12 18:04 This 86 yrs old Female presents to ER via EMS with complaints of near syncope. ms3 18:04 The patient has experienced near-syncope. Onset: The symptoms/episode began/occurred ms3 just prior to arrival. Duration: This was a single episode, that lasted 2 minute(s). 18:08 Context: the episode(s) was witnessed, by family, granddaughter, occurred outdoors, ms3 occurred while the patient was standing. Associated injury: The patient did not suffer any apparent associated injury. Associated signs and symptoms: Pertinent positives: dizziness. Current symptoms: Dizziness. Historical: - Allergies: 17:10 Wlxfhkj-Adz-Dex Reductase Inhibitors; bm7 - PMHx: 17:10 Diabetes - NIDDM; Hypertension; Diabetes mellitus; Dementia; bm7 - Immunization history:: Adult Immunizations unknown. - Social history:: Smoking status: unknown. ROS: 18:08 Constitutional: Negative for fever, and chills. ENT: Negative for injury, pain, and ms3 discharge, Neck: Negative for injury, pain, and swelling, Cardiovascular: Negative for chest pain, and palpitations. Respiratory: Negative for shortness of breath, cough, wheezing, and pleuritic chest pain, Abdomen/GI: Negative for abdominal pain, nausea, vomiting, diarrhea, and constipation, Skin: Negative for injury, rash, and discoloration. 18:08 Neuro: Positive for dizziness. 18:08 All other systems are negative. Exam: 17:20 ECG was reviewed by the Attending Physician. ms3 18:08 Abdomen/GI: ms3 18:08 Constitutional: This is a well developed, well nourished patient who is awake, alert, and in no acute distress. Head/Face: Normocephalic, atraumatic. Neck: Trachea midline, no cervical lymphadenopathy. Supple, full range of motion without nuchal rigidity, or vertebral point tenderness. No Meningismus. Chest/axilla: Normal chest wall appearance and motion. Nontender with no deformity. Cardiovascular: Regular rate and rhythm with a normal S1 and S2. No gallops, murmurs, or rubs. Normal PMI, no JVD. No pulse deficits. Respiratory: Lungs have equal breath sounds bilaterally, clear to auscultation and percussion. No rales, rhonchi or wheezes noted. No increased work of breathing, no retractions or nasal flaring. Abdomen/GI: Soft, non-tender, with normal bowel sounds. No distension or tympany. No guarding or rebound. No evidence of tenderness throughout. Skin: Warm, dry with normal turgor. Normal color with no rashes, no lesions, and no evidence of cellulitis. MS/ Extremity: Pulses equal, no cyanosis. Neurovascular intact. Full, normal range of motion. Neuro: Awake and alert, GCS 15, oriented to person, place, time, and situation. Cranial nerves II-XII grossly intact. Motor strength 5/5 in all extremities. Sensory grossly intact. Cerebellar exam normal. Normal gait. Psych: Awake, alert, with orientation to person, place and time. Behavior, mood, and affect are within normal limits. Vital Signs: 17:07 BP 187 / 64; Pulse 58; Resp 18; Temp 97.7(TE); Pulse Ox 100% on R/A; Weight 63.5 kg bm7 (R); Height 5 ft. 2 in. (157.48 cm); Pain 0/10; 18:25 BP 199 / 63; Pulse 52; ll1 20:13 BP 216 / 66; Pulse 66; Resp 16; Pulse Ox 100% on R/A; Pain 0/10; bm7 17:07 Body Mass Index 25.61 (63.50 kg, 157.48 cm) bm7 MDM: 17:21 Patient medically screened. ms3 21:04 Differential Diagnosis: cardiac arrhythmia, cerebrovascular accident, drug effect, mh7 emotional response, idiopathic syncope, pseudo seizure, seizure, vasovagal episode. Data reviewed: vital signs, nurses notes, EMS record, old medical records, lab test result(s), cardiac enzymes, CBC, electrolytes, urinalysis, EKG, radiologic studies, CT scan, plain films. Data interpreted: Pulse oximetry: on room air is 100 %. Interpretation: normal. Counseling: I had a detailed discussion with the patient and/or guardian regarding: the historical points, exam findings, and any diagnostic results supporting the discharge/admit diagnosis, the presence of at least one elevated blood pressure reading (>120/80) during this emergency department visit, lab results, radiology results, the need for further work-up and treatment in the hospital. Response to treatment: the patient's symptoms have mildly improved after treatment. 01/12 17:23 Order name: Basic Metabolic Panel; Complete Time: 18:41 ms3 01/12 17:23 Order name: CBC with Diff; Complete Time: 18:41 ms3 01/12 17:23 Order name: Magnesium; Complete Time: 18:41 ms3 01/12 17:23 Order name: NT PRO-BNP; Complete Time: 18:41 ms3 01/12 17:23 Order name: Troponin HS; Complete Time: 18:41 ms3 01/12 18:52 Order name: Urine Dipstick-Ancillary; Complete Time: 19:01 EDMS 01/12 19:07 Order name: Urinalysis; Complete Time: 19:08 EDMS 01/12 19:09 Order name: Urinalysis; Complete Time: 19:10 EDMS 01/12 19:09 Order name: SARS RAPID mh7 01/12 21:15 Order name: CBC with Automated Diff EDMS 01/12 21:15 Order name: CBC with Automated Diff EDMS 01/12 21:15 Order name: CKMB Creatine Kinase MB EDMS 01/12 21:15 Order name: CKMB Creatine Kinase MB EDMS 01/12 17:23 Order name: XRAY Chest (1 view); Complete Time: 18:41 ms3 01/12 17:23 Order name: EKG; Complete Time: 17:26 ms3 01/12 18:43 Order name: CT Head Brain wo Cont; Complete Time: 19:35 ms3 01/12 21:15 Order name: Heart Healthy EDMS 01/12 21:15 Order name: EKG Electrocardiogram; Complete Time: 22:33 EDMS 01/12 21:15 Order name: CKMB Creatine Kinase MB EDMS 01/12 21:15 Order name: CKMB Creatine Kinase MB EDMS 01/12 21:15 Order name: Comprehensive Metabolic Panel EDMS 01/12 21:15 Order name: Comprehensive Metabolic Panel EDMS 01/12 21:15 Order name: Creatine Phosphokinase EDMS 08/15 21:15 Order name: Creatine Phosphokinase EDNM 01/12 21:15 Order name: Creatine Phosphokinase EDNM 01/12 21:15 Order name: Creatine Phosphokinase [facility] 01/12 17:23 Order name: Cardiac monitoring; Complete Time: 17:27 ms3 08 17:23 Order name: EKG - Nurse/Tech; Complete Time: 17:27 ms3 08 17:23 Order name: IV Saline Lock; Complete Time: 17:27 ms3 01/12 17:23 Order name: Labs collected and sent; Complete Time: 17:27 ms3 08 17:23 Order name: O2 Per Protocol; Complete Time: 17:27 ms3 01/12 17:23 Order name: O2 Sat Monitoring; Complete Time: 17:27 ms3 01/12 17:23 Order name: Urine Dipstick-Ancillary (obtain specimen); Complete Time: 18:54 ms3 01/12 21:15 Order name: EKG Electrocardiogram; Complete Time: 22:33 EDMS EC:20 Rate is 53 beats/min. Rhythm is regular. QRS [place] is Normal. DE interval is normal. QRS ms3 interval is normal. Clinical impression: Sinus bradycardia. Interpreted by me. Reviewed by me. Administered Medications: 20:13 Drug: hydrALAZINE 5 mg Route: IVP; Site: right forearm; [facility] 22:33 Follow up: Response: Blood pressure is elevated 7 22:25 Not Given (PER MD DISCRETION DUE TO BP 164/58 P- 56f): hydrALAZINE 5 mg IVP once 7 Disposition Summary: 01/12/22 21:06 Hospitalization Ordered Hospitalization Status: Inpatient Admission [facility] Provider: Viet Argueta Condition: Stable [facility] Problem: new [facility] Symptoms: have improved [facility] Bed/Room Type: Standard [facility] Location: [facility] ER HOLD(01/12/22 21:08) Room Assignment: ERHOLD-(01/12/22 21:08) Diagnosis - Syncope [facility] - Essential (primary) hypertension [facility] Forms: - Medication Reconciliation Form [facility] - SBAR form [facility] Signatures: Dispatcher [employer] EDMarsha Mcrae RN RN mw Romel Hanson DO DO ms3 Apollo Mcrae MD MD 7 Gaytan, Evi, RN RN bm7 Corrections: (The following items were deleted from the chart) 19:11 17:38 URINALYSIS+U.LAB.CRIS ordered. EDMS EDMS : 21:06 Telemetry/MedSurg (Inpatient) [facility] : 21:06 [facility]
[2022-01-12] MEDS ORDERED: ACETAMINOPHEN 500 MG TAB PO PRN (21:09)
[2022-01-12] MEDS ORDERED: ONDANSETRON 4 MG/2 ML VIAL IV PRN (21:09)
[2022-01-12] MEDS ORDERED: ALBUTEROL 2.5 MG/3 ML NEB SOL NEB PRN (21:09)
[2022-01-12] MEDS ORDERED: MORPHINE 2 MG/ML SYR IV PRN (21:09)
[2022-01-12] MEDS ORDERED: HYDRALAZINE HCL 20 MG/ML VIAL IV PRN (21:12)
[2022-01-12 22:22] LABS: SARS-CoV-2 Antigen Rapid Res Negative (Negative)
[2022-01-13 00:28] LABS: Creatine Phosphokinase 41 U/L (26-192)
[2022-01-13 00:48] LABS: CKMB Creatine Kinase MB < 1.0 ng/mL (1.0-3.6)
[2022-01-13] MEDS: IPRATROPIUM BROM 0.5MG/2.5ML NEB SCH ×2 (01:30→08:00)
[2022-01-13] MEDS ORDERED: IPRATROPIUM BROM 0.5MG/2.5ML ONE (01:31)
[2022-01-13 03:14] LABS: Absolute Lymphocytes (CBC) 2.3 K/uL (0.7-4.9); Lymphocytes % 19.6 % (15.3-44.8); MCV 85.6 fL (80-100); MPV 8.8 fL (7.6-11.3); RBC Red Blood Cell Count 4.21 M/uL (3.86-4.86)
[2022-01-13 03:42] LABS: Bilirubin Total 0.9 mg/dL (0.2-1.0); CKMB Creatine Kinase MB 1.1 ng/mL (1.0-3.6); Potassium 3.4 mmol/L (3.5-5.1)
[2022-01-13] MEDS ORDERED: HYDRALAZINE HCL 20 MG/ML VIAL ONE (05:03)
[2022-01-13] MEDS ORDERED: cloNIDine HCL 0.1 MG TAB PO PRN (06:43)
--- NOTE | 2022-01-13 08:13 | EKG ---
Test Date: 2022-01-12 Test Time: 17:20:19 Computer Designer: PROSPER MEASUREMENT RESULTS: Intervals: Rate: 53 VT: 212 QRSD: 98 QT: 438 QTc: 410 [place]: P: 43 VT: 212 QRS: -32 T: -63 INTERPRETIVE STATEMENTS: Sinus bradycardia with 1st degree AV block Left axis deviation Septal infarct, age undetermined Abnormal ECG Compared to ECG 01/14/2018 12:58:32 First degree AV block now present Left-axis deviation now present Myocardial infarct finding now present Sinus rhythm no longer present ST (T wave) deviation no longer present Electronically Signed On 01-13-22 08:11:06 CDT by Rhys Navarro
[2022-01-13 08:17] VITALS: BMI 24.7
[2022-01-13] MEDS ORDERED: POTASSIUM CL SA 10 MEQ TAB PO SCH (09:00)
[2022-01-13 09:29] VITALS: TEMP 97.7; O2SAT 100
[2022-01-13 09:33] VITALS: BP 216/66
--- NOTE | 2022-01-13 12:56 | P.SSS ---
Patient History Date of Service: 01/13/22 Reason for admission: FALLEN WHILE STANDING IN LINE History of Present Illness: MS. RUIZ IS A DIABETIC WITH LABILE HYPERTENSION, WAS STANDING IN LINE AT MEET THE DAY IN HEAT AND HAD NEAR SYNCOPE SPELL. HER BP WAS 100/60 PER SCHOOL NURSE. HER BP IS NEVER THAT LOW. NOW IT HAS CLIMBED TO 200 SYSTOLIC AND DOWN TO 160 WITH MEDS GIVEN. SHE IS STABLE, HAS NO FOCAL INFECTION, NO SIGNS OF CORONARY OR CVA EVENT. SHE IS ABLE TO GO HOME. Allergies atorvastatin Allergy (Verified 01/14/18 21:44) Nausea/Vomiting Snykodl-Akg-Agj Redu Allergy (Uncoded 01/14/18 18:06) Unknown Jzenspg-Kna-Caa Reductase Allergy (Uncoded 08/07/16 16:43) Unknown Bysehjj-Dnm-Sjr Reductase Inh Allergy (Uncoded 03/28/17 13:35) Unknown Home Medications: Aspirin 81 mg PO DAILY 10/16/11 Metformin HCl 1,000 mg PO BID 10/16/11 Metoprolol Tartrate 50 mg PO BID 10/16/11 Insulin Regular, Human [Humulin R U-500 Kwikpen] 5 unit SQ WMP 07/18/16 Amlodipine Besylate [Norvasc] 10 mg PO DAILY #30 tablet 07/20/16 Meclizine HCl [Antivert*] 25 mg PO TID PRN #30 tab 07/20/16 Insulin Glargine,Hum.rec.anlog [Lantus] 40 unit SQ DAILY 01/14/18 Meclizine HCl 25 mg PO TID PRN #60 tablet 01/15/18 lisinopriL [Prinivil*] 30 mg PO DAILY #30 tab 01/15/18 Azilsartan Medoxomil [Edarbi] 40 mg PO DAILY 01/12/22 Ezetimibe [Zetia] 10 mg PO DAILY 01/12/22 Travoprost 2.5 ml OP 01/12/22 hydroCHLOROthiazide [Hydrochlorothiazide*] 12.5 mg PO DAILY 01/12/22 hydroCHLOROthiazide [Hydrochlorothiazide] 12.5 mg PO 01/12/22 hydroCHLOROthiazide [Hydrochlorothiazide] 25 mg PO 01/12/22 - Past Medical/Surgical History Has patient received pneumonia vaccine in the past: No Diabetic: Yes -: Diabetes Mellitus -: HTN -: Cholecystectomy -: Appendectomy -: Hip Surgery -: cataract bilateral -: retinal laser surgery - Social History Smoking Status: Never smoker Alcohol use: No CD- Drugs: No Caffeine use: No Place of Residence: Home Review of Systems 10-point ROS is otherwise unremarkable General: Weakness Physical Examination - Vital Signs Temperature: 97.7 F Blood Pressure: 216/66 Pulse: 66 Respirations: 16 Pulse Ox (%): 100 - Physical Exam General: Alert, In no apparent distress HEENT: Atraumatic, PERRLA, Mucous membr. moist/pink, EOMI, Sclerae nonicteric Neck: Supple, 2+ carotid pulse no bruit, No LAD, Without JVD or thyroid abnormality Respiratory: Clear to auscultation bilaterally, Normal air movement Cardiovascular: Regular rate/rhythm, Normal S1 S2 Gastrointestinal: Normal bowel sounds, No tenderness Musculoskeletal: No tenderness Integumentary: No rashes Neurological: Normal gait, Normal speech, Normal strength at 5/5 x4 extr, Normal tone, Normal affect Lymphatics: No axilla or inguinal lymphadenopathy - Studies Laboratory Data (last 24 hrs) 01/12/22 17:49: WBC 13.20 H, Hgb 13.1, Hct 38.1, Plt Count 269 01/12/22 17:49: Sodium 132 L, Potassium 3.6, BUN 31 H, Creatinine 0.96, Glucose 95, Magnesium 2.0 - Diagnosis (Problem(s)) (1) Orthostatic hypotension Status: Acute Plan: MS. RUIZ IS BETTER WITH IV FLUIDS. SHE GOT OVERHEATED AND HAD LOW BP IT CAN HAPPEN IN ELDERLY AND HTN PATIENTS. SHE WILL FU AT OFFICE. HER WBC CAME DOWN TO 11K. SHE HAS NO SOURCE OF INFECTION. - Disposition Disposition: DC HOME/HOME HEALTH CARE Condition: FAIR
== END 2022-01-13 08:56 | disposition home health service (06) ==
LOC: ER 17:02 → INTOOBSV 21:15 → ERHOLD 21:15
PROVIDERS: ADMIT Internal Medicine; ATTEND Internal Medicine
DX: I95.1 Orthostatic hypotension (principal); I10 Essential (primary) hypertension; E11.9 Type 2 diabetes mellitus without complications; F03.90 Unspecified dementia, unspecified severity, without behavioral disturbance, psychotic disturbance, mood disturbance, and anxiety; Z79.82 Long term (current) use of aspirin; Z79.4 Long term (current) use of insulin; Z79.84 Long term (current) use of oral hypoglycemic drugs; Z79.899 Other long term (current) drug therapy; Z88.8 Allergy status to other drugs, medicaments and biological substances; Z90.49 Acquired absence of other specified parts of digestive tract; Z20.822 Contact with and (suspected) exposure to COVID-19
CPT/HCPCS: 93005; 85025 ×2; 80048; 36415; 83735; 82550 ×2; 81003 ×2; 84484; 82553 ×2; 80053; 83880; 70450; 71045; 94760; 96374; 99285; 87811; J0360 ×2; G0378 ×3

== ENCOUNTER 2023-10-29 07:27 | Observation (INO) | payer OTHER ==
--- NOTE | 2023-10-29 08:04 | RAD REPORT ---
EXAM DESCRIPTION: Ramiro Single View10/29/2023 7:58 am CLINICAL HISTORY: Syncope/shortness of breath COMPARISON: 2021 FINDINGS: Pulmonary vascular congestion is present. Lungs appear clear of acute infiltrate. Heart is mildly enlarged
--- NOTE | 2023-10-29 08:08 | RAD REPORT ---
EXAM DESCRIPTION: CT - Head Brain Wo Cont - 10/29/2023 7:51 am CLINICAL HISTORY: Syncope COMPARISON: 2021 TECHNIQUE: Computed axial tomography of the head was obtained. IV contrast was not requested. All CT scans are performed using dose optimization technique as appropriate and may include automated exposure control or mA/KV adjustment according to patient size. FINDINGS: An intracranial bleed is not seen The ventricles are normal in caliber No extra-axial fluid collection is noted. Prominent cerebral atrophy. No significant hypodensity within the brain is noted. Small right temporal osteoma Fluid within the sinuses/ mastoids is not seen. IMPRESSION: No acute intracranial abnormality is seen If patient's symptoms persist MRI of the brain would be recommended
[2023-10-29 08:24] LABS: Absolute Basophils 0.1 K/uL (0-0.5); Absolute Eosinophils 0.1 K/uL (0-0.5); Absolute Lymphocytes (CBC) 1.3 K/uL (0.7-4.9); Absolute Monocytes 0.5 K/uL (0.1-1.3); Absolute Neutrophil 5.6 K/uL (1.8-8.0); Basophils % 1.5 % (0-1.3); Eosinophils % 0.9 % (0-4.4); Hemoglobin 11.8 g/dL (12.0-15.0); Lymphocytes % 17.7 % (15.3-44.8); MCH 30.1 pg (27.0-35.0); MCHC 33.7 g/dL (32.0-36.0); MCV 89.5 fL (80-100); MPV 9.2 fL (7.6-11.3); Monocytes % 6.4 % (3.3-12.3); Neutrophils % 73.5 % (41.7-73.7); Platelets 212 thou/uL (152-406); RBC Red Blood Cell Count 3.91 M/uL (3.86-4.86); Red Cell Distribution Width 13.9 % (12.1-15.2)
[2023-10-29 08:43] LABS: Albumin 2.6 g/dL (3.4-5.0); Albumin/Globulin Ratio 0.8 (1.1-1.8); Anion Gap 7.7 mEq/L (5.0-15.0); Bilirubin Direct 0.2 mg/dL (0-0.2); Bilirubin Indirect, Calculated 0.6 mg/dL (0.2-0.8); Bilirubin Total 0.8 mg/dL (0.2-1.0); Globulin 3.2 g/dL (2.3-3.5); Magnesium 1.7 mg/dL (1.6-2.4); Potassium 3.7 mEq/L (3.5-5.1); Protein, Total 5.8 g/dL (6.4-8.2); Troponin High Sensitivity 8.3 pg/mL (<58.9)
--- NOTE | 2023-10-29 08:52 | EDPHYS ---
Physician Documentation [facility] Name: Valerie Hart Age: 88 yrs Sex: Female : 1935 Arrival Date: 10/29/2023 Time: 07:27 Bed 6 Private MD: ED Physician Romel Hanson HPI: 10/28 08:52 This 88 yrs old Female presents to ER via EMS with complaints of Syncope. ms3 08:52 88-year-old female with past medical history of dementia, diabetes, hypertension ms3 presents to the emergency department via [facility] for syncope. EMS states on arrival patient's heart rate was in the 40s and patient was dizzy. EMS states they administered 0.5 mg atropine with improvement in patient's heart rate and condition. Patient denies chest pain, nausea, vomiting. Patient endorses shortness of breath during the episode. Historical: - Allergies: 07:35 Awwrmzu-Iuz-Gkp Reductase Inhibitors; ph 08:49 Rhopressa; ph 08:49 Alphagan P; ph - Home Meds: 08:49 amlodipine 5 mg tablet daily [Active]; aspirin 81 mg Oral tablet, delayed release ph (enteric coated) 1 tab daily [Active]; Calci-Chew Oral daily [Active]; donepezil 5 mg oral tablet daily [Active]; Edarbi 40 mg oral tablet daily [Active]; ezetimibe 10 mg oral tablet nightly [Active]; Humalog Sub-Q via insulin pump [Active]; metoprolol tartrate 25 mg Oral tablet 2 times per day [Active]; travoprost 0.004 % ophthalmic (eye) drops daily [Active]; - PMHx: 07:35 Dementia; Diabetes - NIDDM; diabetes mellitus; Hypertension; ph - PSHx: 08:49 Cholecystectomy; hip fracture; cataract sx; ph - Immunization history:: Adult Immunizations. - Infectious Disease History:: Denies. - Social history:: Smoking status: unknown. ROS: 08:52 Constitutional: Negative for fever, and chills. Neck: Negative for injury, pain, and ms3 swelling, Cardiovascular: Negative for chest pain, and palpitations. Respiratory: Negative for shortness of breath, cough, wheezing, and pleuritic chest pain, Abdomen/GI: Negative for abdominal pain, nausea, vomiting, diarrhea, and constipation, Skin: Negative for injury, rash, and discoloration, 08:52 Neuro: Positive for syncope, Exam: 08:52 Constitutional: This is a well developed, well nourished patient who is awake, alert, ms3 and in no acute distress. Head/Face: Normocephalic, atraumatic. Neck: Trachea midline, no cervical lymphadenopathy. Supple, full range of motion without nuchal rigidity, or vertebral point tenderness. No Meningismus. Chest/axilla: Normal chest wall appearance and motion. Nontender with no deformity. Cardiovascular: Regular rate and rhythm with a normal S1 and S2. No gallops, murmurs, or rubs. Normal PMI, no JVD. No pulse deficits. Respiratory: Lungs have equal breath sounds bilaterally, clear to auscultation and percussion. No rales, rhonchi or wheezes noted. No increased work of breathing, no retractions or nasal flaring. Abdomen/GI: Soft, non-tender, with normal bowel sounds. No distension or tympany. No guarding or rebound. No evidence of tenderness throughout. Skin: Warm, dry with normal turgor. Normal color with no rashes, no lesions, and no evidence of cellulitis. MS/ Extremity: Pulses equal, no cyanosis. Neurovascular intact. Full, normal range of motion. 08:55 ECG was reviewed by the Attending Physician. ms3 Vital Signs: 07:31 BP 182 / 75; Pulse 73; Resp 18; Temp 97.2; Pulse Ox 100% on R/A; ph 08:48 BP 192 / 63; Pulse 57; Resp 18; Pulse Ox 99% on R/A; ph 10:14 BP 189 / 57; Pulse 62; Resp 18; Pulse Ox 100% on R/A; ph 11:38 BP 129 / 52; Pulse 53; Resp 18; Temp 97.5; Pulse Ox 99% on R/A; ph MDM: 07:30 Patient medically screened. ms3 08:52 Differential Diagnosis: cardiac arrhythmia, drug effect, idiopathic syncope, vasovagal ms3 episode. Data reviewed: vital signs, nurses notes, lab test result(s), EKG, radiologic studies, and as a result, I will admit patient. Consideration of Admission/Observation Patient was admitted/placed on observation. Management of patient was discussed with the following: Hospitalist: Dr Argueta. Historians other than the Patient: EMS: [facility]. Care significantly affected by the following chronic conditions: Diabetes, Hypertension. Counseling: I had a detailed discussion with the patient and/or guardian regarding the historical points, exam findings, and any diagnostic results supporting the discharge/admit diagnosis, lab results, radiology results, the need for further work-up and treatment in the hospital. ED course: Discussed case with Dr Argueta. Patient currently on Metoprolol 25 mg BID. Would like to stop beta macario. Agrees with observation.. 10/28 07:31 Order name: Basic Metabolic Panel; Complete Time: 08:45 ms3 10/28 07:31 Order name: CBC with Diff; Complete Time: 08:33 ms3 10/28 07:31 Order name: LFT's; Complete Time: 08:45 ms3 10/28 07:31 Order name: Magnesium; Complete Time: 08:45 ms3 10/28 07:31 Order name: NT PRO-BNP; Complete Time: 08:45 ms3 10/28 07:31 Order name: Troponin HS; Complete Time: 08:45 ms3 10/28 11:11 Order name: Troponin High Sensitivity EDMS 10/28 07:31 Order name: XRAY Chest (1 view); Complete Time: 08:33 ms3 10/28 07:31 Order name: CT Head Brain wo Cont; Complete Time: 08:33 ms3 10/28 07:31 Order name: Cardiac monitoring; Complete Time: 08:46 ms3 10/28 07:31 Order name: EKG - Nurse/Tech; Complete Time: 08:46 ms3 10/28 07:31 Order name: IV Saline Lock; Complete Time: 08:46 ms3 10/28 07:31 Order name: Labs collected and sent; Complete Time: 08:46 ms3 10/28 07:31 Order name: O2 Per Protocol; Complete Time: 08:46 ms3 10/28 07:31 Order name: O2 Sat Monitoring; Complete Time: 08:47 ms3 EC:55 Rate is 64 beats/min. Rhythm is regular. QRS [place] is Normal. MA interval is prolonged. ms3 Clinical impression: NSR w/ Non-specific ST/T Changes and with 1st degree block. Interpreted by me. Reviewed by me. Administered Medications: No medications were administered Disposition Summary: 10/29/23 08:52 Hospitalization Ordered Notes: Hospitalization Status: Observation ms3 Provider: Viet Argueta ms3 Location: Telemetry/MedSurg (observation) ms3 Condition: Stable ms3 Problem: new ms3 Symptoms: are unchanged ms3 Bed/Room Type: Standard ms3 Room Assignment: 405(10/29/23 11:59) eb Diagnosis - Syncope ms3 - Bradycardia, unspecified ms3 Forms: - Medication Reconciliation Form ms3 - SBAR form ms3 - Leadership Thank You Letter ms3 Signatures: Dispatcher [employer] EDMS Edith Kahn, RN RN ph Ciara Oden Marcus, DO DO ms3 Corrections: (The following items were deleted from the chart) 07:32 07:32 Chest Single View+RAD.RAD.BRZ ordered. EDMS EDMS 07:32 07:32 Head Brain Wo Cont+CT.RAD.BRZ ordered. EDMS EDMS 11:28 08:52 ms3 eb 11:28 11:28 426 eb eb 11:59 11:28 429 eb eb
--- NOTE | 2023-10-29 08:52 | ER ---
Nurse's Notes [facility] Name: Valerie Hart Age: 88 yrs Sex: Female : 1935 Arrival Date: 10/29/2023 Time: 07:27 Bed 6 Private MD: Diagnosis: Syncope;Bradycardia, unspecified Presentation: 10/28 07:31 Chief complaint: EMS states: Pt from home, family reports that they were changing out ph the batteries in her glucose meter and she lost consciousness, was awake and alert when EMS arrived, all VSS except for HR in the 40s, BGL 131, 0.5 atropine, 4 mg zofran, and NS given, HR now in 70s, pt hx of dementia, is currently at baseline mental status. Coronavirus screen: Vaccine status: Patient reports receiving the 2nd dose of the covid vaccine. Ebola Screen: No symptoms or risks identified at this time. Initial Sepsis Screen: Does the patient meet any 2 criteria? No. Patient's initial sepsis screen is negative. Does the patient have a suspected source of infection? No. Patient's initial sepsis screen is negative. Risk Assessment: Do you want to hurt yourself or someone else? Patient reports no desire to harm self or others. Onset of symptoms was October 29, 2023. 07:31 Method Of Arrival: EMS: [facility] ph 07:31 Acuity: FORD 2 ph Triage Assessment: 07:35 General: Appears in no apparent distress. Behavior is calm, cooperative. Pain: Denies ph pain. Neuro: Level of Consciousness is awake, alert, obeys commands, Oriented to person, place. Cardiovascular: Capillary refill < 3 seconds in bilateral fingers Patient's skin is warm and dry. Respiratory: Airway is patent Respiratory effort is even, unlabored. Historical: - Allergies: 07:35 Yjmeksg-Wdq-Udc Reductase Inhibitors; ph 08:49 Rhopressa; ph 08:49 Alphagan P; ph - Home Meds: 08:49 amlodipine 5 mg tablet daily [Active]; aspirin 81 mg Oral tablet, delayed release ph (enteric coated) 1 tab daily [Active]; Calci-Chew Oral daily [Active]; donepezil 5 mg oral tablet daily [Active]; Edarbi 40 mg oral tablet daily [Active]; ezetimibe 10 mg oral tablet nightly [Active]; Humalog Sub-Q via insulin pump [Active]; metoprolol tartrate 25 mg Oral tablet 2 times per day [Active]; travoprost 0.004 % ophthalmic (eye) drops daily [Active]; - PMHx: 07:35 Dementia; Diabetes - NIDDM; diabetes mellitus; Hypertension; ph - PSHx: 08:49 Cholecystectomy; hip fracture; cataract sx; ph - Immunization history:: Adult Immunizations. - Infectious Disease History:: Denies. - Social history:: Smoking status: unknown. Screenin:47 [facility] ED Fall Risk Assessment (Adult) History of falling in the last 3 months, ph including since admission No falls in past 3 months (0 pts) Confusion or Disorientation Yes (5 pts) Intoxicated or Sedated No (0 pts) Impaired Gait No (0 pts) Mobility Assist Device Used No (0 pt) Altered Elimination No (0 pt) Score/Fall Risk Level 3 or more points = High Risk Oriented to surroundings, Maintained a safe environment, Used ambulatory aids as needed (educated on \T\ assisted with). Abuse screen: Denies threats or abuse. Denies injuries from another. Nutritional screening: No deficits noted. Tuberculosis screening: No symptoms or risk factors identified. Assessment: 08:15 General: Appears in no apparent distress. comfortable, well groomed, Behavior is calm, ph cooperative. Pain: Denies pain. Neuro: Level of Consciousness is awake, alert, Oriented to person, place. Cardiovascular: Reports syncope, Rhythm is sinus bradycardia. Respiratory: Airway is patent Respiratory effort is even, unlabored, Respiratory pattern is regular, symmetrical. Derm: Skin is pink, warm \T\ dry. Musculoskeletal: Circulation, motion, and sensation intact. Range of motion: intact in all extremities. 08:54 Reassessment: Patient appears in no apparent distress at this time. Patient and/or ph family updated on plan of care and expected duration. Pain level reassessed. Pt awake and alert, family at bedside. 10:14 Reassessment: Patient appears in no apparent distress at this time. Patient and/or ph family updated on plan of care and expected duration. Pain level reassessed. Vital Signs: 07:31 BP 182 / 75; Pulse 73; Resp 18; Temp 97.2; Pulse Ox 100% on R/A; ph 08:48 BP 192 / 63; Pulse 57; Resp 18; Pulse Ox 99% on R/A; ph 10:14 BP 189 / 57; Pulse 62; Resp 18; Pulse Ox 100% on R/A; ph 11:38 BP 129 / 52; Pulse 53; Resp 18; Temp 97.5; Pulse Ox 99% on R/A; ph Vitals: 08:48 Cardiac Rhythm Assessment Sinus shahnaz. ph ED Course: 07:30 Patient arrived in ED. ms3 07:30 Romel Hanson DO is Attending Physician. ms3 07:31 Edith Kahn, RN is Primary Nurse. ph 07:35 Triage completed. ph 07:36 Arm band placed on Patient placed in an exam room, in the treatment room, on cardiac ph monitor, on pulse oximetry. 07:36 Patient has correct armband on for positive identification. Placed in gown. Bed in low ph position. Call light in reach. Side rails up X2. Client placed on continuous cardiac and pulse oximetry monitoring. NIBP monitoring applied. automobile service station mechanic on. Door closed. Noise minimized. Warm blanket given. Pillow given. 07:[address] via stretcher. ph 07:52 CT Head Brain wo Cont In Process Unspecified. EDMS 07:59 XRAY Chest (1 view) In Process Unspecified. EDMS 08:10 Initial lab(s) drawn, by me, sent to lab. EKG done, by ED staff, reviewed by Romel Hanson DO. Maintain EMS IV. Dressing intact. Good blood return noted. Site clean \T\ dry. Gauge \T\ site: 20 RAC. IV is patent, with fluids infusing freely, with good blood return. 08:47 No provider procedures requiring assistance completed. ph 08:52 Viet Argueta MD is Hospitalizing Provider. ms3 Administered Medications: No medications were administered Medication: 07:36 VIS not applicable for this client. ph Outcome: 08:52 Decision to Hospitalize by Provider. ms3 12:44 Patient left the ED. eb Signatures: Dispatcher [employer] EDEdith Porter, RN RN Ciara Zabala Marcus, DO DO ms3
[2023-10-29] MEDS ORDERED: AMLODIPINE 5 MG TAB ONE (09:16)
[2023-10-29 12:55] VITALS: O2SAT 99
[2023-10-29 13:12] VITALS: BMI 21.8
[2023-10-29 16:23] VITALS: BP 143/68; TEMP 97.1
--- NOTE | 2023-10-29 21:43 | P.SSS ---
Patient History Date of Service: 10/29/23 Reason for admission: SYNCOPE WITH BRADYCARDIA History of Present Illness: MAHI IS A BRITTLE DIABETIC WHO HAD SYNCOPE WITH BRADYACARDIA WITH NEW CARMEN INSERTION. SHE HAS NO CHEST PAIN OR NEURO DEFICITS. ER DOCTOR DECIDED TO ADMIT HER BUT SHE IS STABLE AND WANTS TO GO HOME. Allergies atorvastatin Allergy (Verified 01/14/18 21:44) Nausea/Vomiting Qhbvidn-Fna-Rsj Redu Allergy (Uncoded 01/14/18 18:06) Unknown Ygwniec-Eum-Viv Reductase Allergy (Uncoded 08/07/16 16:43) Unknown Xhnfasw-Otf-Uwp Reductase Inh Allergy (Uncoded 03/28/17 13:35) Unknown Home medications list reviewed: Yes Home Medications: Aspirin 81 mg PO DAILY 10/16/11 Insulin Regular, Human [Humulin R U-500 Kwikpen] 5 unit SQ WMP 07/18/16 Meclizine HCl 25 mg PO TID PRN #60 tablet 01/15/18 Azilsartan Medoxomil [Edarbi] 40 mg PO DAILY 01/12/22 Ezetimibe [Zetia*] 10 mg PO DAILY 01/12/22 Travoprost 2.5 ml OP 01/12/22 Amlodipine Besylate [Norvasc] 5 mg PO DAILY 10/29/23 Donepezil [Aricept*] 5 mg PO DAILY 6PM 10/29/23 - Past Medical/Surgical History Has patient received pneumonia vaccine in the past: No Diabetic: Yes -: Diabetes Mellitus -: HTN -: Cholecystectomy -: Appendectomy -: Hip Surgery -: cataract bilateral -: retinal laser surgery - Social History Smoking Status: Never smoker Alcohol use: No CD- Drugs: No Caffeine use: No Place of Residence: Home Review of Systems 10-point ROS is otherwise unremarkable Physical Examination - Vital Signs Temperature: 97.1 F Blood Pressure: 143/68 Pulse: 57 Respirations: 17 Pulse Ox (%): 98 - Physical Exam General: Mild distress HEENT: Atraumatic, PERRLA, Mucous membr. moist/pink, EOMI, Sclerae nonicteric Neck: Supple, 2+ carotid pulse no bruit, No LAD, Without JVD or thyroid abnormality Respiratory: Clear to auscultation bilaterally, Normal air movement Cardiovascular: Regular rate/rhythm, Normal S1 S2 Gastrointestinal: Normal bowel sounds, No tenderness Musculoskeletal: No tenderness Integumentary: No rashes Neurological: Normal gait, Normal speech, Normal strength at 5/5 x4 extr, Normal tone, Normal affect Lymphatics: No axilla or inguinal lymphadenopathy - Studies Laboratory Data (last 24 hrs) 10/29/23 10/29/23 08:10 08:10 WBC 7.60 Hgb 11.8 L Hct 35.0 L Plt Count 212 Sodium 138 Potassium 3.7 BUN 27 H Creatinine 0.95 Glucose 105 Magnesium 1.7 Total Bilirubin 0.8 AST 15 ALT 22 Alkaline Phosphatase 71 - Diagnosis (Problem(s)) (1) Bradycardia Status: Acute Plan: THIS CAN BE FROM VASOVAGAL EPISODE WITH B TISH WILL STOP SMALL DOSE SHE IS TAKING. WILL FU. (2) Near syncope Onset Date: 01/17/18 Status: Acute Plan: ABOVE SHE IS STABLE. WILL SEE HER IN OFFICE NEXT WEEK. - Disposition Disposition: ROUTINE DISCHARGE Condition: FAIR
--- NOTE | 2023-10-30 13:56 | EKG ---
Test Date: 2023-10-29 Test Time: 08:06:18 Yeast Tender: PH MEASUREMENT RESULTS: Intervals: Rate: 64 NE: 230 QRSD: 96 QT: 424 QTc: 437 Cascade: P: 69 NE: 230 QRS: -16 T: 47 INTERPRETIVE STATEMENTS: Sinus rhythm with 1st degree AV block Septal infarct, age undetermined Abnormal ECG Compared to ECG 01/12/2022 17:20:19 Sinus bradycardia no longer present Left-axis deviation no longer present Myocardial infarct finding still present Electronically Signed On 10-30-23 13:53:48 CDT by Sundeep Hodge
== END 2023-10-29 16:21 | disposition home or self-care (01) ==
LOC: ER 07:27 → ERHOLD 11:08 → 4TH 11:57
PROVIDERS: ADMIT Internal Medicine; ATTEND Internal Medicine
DX: R55 Syncope and collapse (principal); R00.1 Bradycardia, unspecified; E11.9 Type 2 diabetes mellitus without complications; I10 Essential (primary) hypertension; F03.90 Unspecified dementia, unspecified severity, without behavioral disturbance, psychotic disturbance, mood disturbance, and anxiety; Z88.8 Allergy status to other drugs, medicaments and biological substances
CPT/HCPCS: 36415; 70450; 71045; 80048; 80076; 83735; 83880; 84484; 85025; 93005; 99285; G0378

== ENCOUNTER 2024-08-07 11:27 | Emergency (ER) | payer OTHER ==
--- NOTE | 2024-08-07 13:38 | RAD REPORT ---
Exam:Knee Right 3 View HISTORY: Right knee pain FINDINGS: No fracture or dislocation seen Osteoporosis. Chondrocalcinosis If the patient continues to have symptoms to suggest an occult fracture, ligamentous or meniscal inju ry then MRI would be recommended
--- NOTE | 2024-08-07 13:39 | RAD REPORT ---
Exam:Wrist Left 3 View HISTORY: Left wrist pain FINDINGS: No fracture or dislocation seen. Osteoporosis. Degenerative calcifications. Osteoarthritis. If the patient continues to have symptoms to suggest an occult fracture then follow-up x-ray in 7 day s would be recommended
--- NOTE | 2024-08-07 13:40 | RAD REPORT ---
Exam:Hand Left 3 View CLINICAL HISTORY: Left hand pain FINDINGS: No fracture or dislocation seen Osteoporosis. Arthritic changes. Degenerative calcification
--- NOTE | 2024-08-07 13:43 | RAD REPORT ---
Exam:Shoulder Right 2+ Views History: Right shoulder pain Findings: No fracture or dislocation seen Osteoporosis. Calcification superior to the humeral head may indicate calcific tendinitis. Examination somewhat limited secondary to difficulty with patient positioning.
--- NOTE | 2024-08-07 13:49 | EDPHYS ---
Physician Documentation [facility] Name: Valerie Hart Age: 89 yrs Sex: Female : 1935 Arrival Date: 08/07/2024 Time: 11:27 Bed 9 Private MD: ED Physician Rodrigue Beauchamp HPI: 08/07 12:19 This 89 yrs old Female presents to ER via Ambulatory with complaints of Fall rn Injury. 12:19 Details of fall: The patient fell from an upright position. Onset: The symptoms/episode rn began/occurred 2 day(s) ago. Associated injuries: The patient sustained Left wrist and hand. Severity of symptoms: At their worst the symptoms were mild, in the emergency department the symptoms are unchanged. The patient has not experienced similar symptoms in the past. Patient reports tripped, fell with outstretched hand, reports main pain to left wrist and left hand. Also reports mild pain to the right shoulder and right knee. No head injury or neck pain. No back pain. No rib pain or chest injury. Otherwise acting at baseline. Historical: - Allergies: 12:15 Alphagan P; hb 12:15 Rhopressa; hb 12:15 Jxggdsz-Emb-Wuf Reductase Inhibitors; hb - PMHx: 12:15 Diabetes - NIDDM; diabetes mellitus; Dementia; Hypertension; hb - PSHx: 12:15 cataract sx; Cholecystectomy; hip fracture; hb - Immunization history:: Adult Immunizations up to date. - Infectious Disease History:: Denies. - Social history:: Smoking status: Patient denies any tobacco usage or history of. - Family history:: not pertinent. - Hospitalizations: : No recent hospitalization is reported. ROS: 12:19 Constitutional: Negative for fever, chills, and weight loss, Neck: Negative for injury, rn pain, and swelling, Cardiovascular: Negative for chest pain, palpitations, and edema, Respiratory: Negative for shortness of breath, cough, wheezing, and pleuritic chest pain, Abdomen/GI: Negative for abdominal pain, nausea, vomiting, diarrhea, and constipation, Back: Negative for injury and pain, MS/Extremity: Positive for left wrist and hand injury. Positive for right shoulder and right knee pain Exam: 12:19 Constitutional: This is a well developed, well nourished patient who is awake, alert, rn and in no acute distress. Head/Face: Normocephalic, atraumatic. Neck: No midline cervical tenderness Chest/axilla: Nontender with no deformity. Cardiovascular: Regular rate and rhythm. No pulse deficits. Back: No spinal tenderness. No costovertebral tenderness. Full range of motion. MS/ Extremity: Pulses equal, no cyanosis. Neurovascular intact. Mild painful range of motion left wrist and left second and third digits. Abrasions to the dorsum of the left second and third digits. Mild painful range of motion right shoulder without deformity. Mild painful range of motion of the right knee without deformity or focal tenderness. Neuro: Awake and alert, GCS 15 Vital Signs: 12:13 BP 191 / 74; Pulse 71; Resp 18; Temp 97.5; Pulse Ox 100% on R/A; Pain 5/10; hb 12:13 Pain Scale: Adult hb MDM: 11:34 Medical Screening Exam initiated rn 13:47 Differential diagnosis: abrasion, contusion, fracture, sprain, strain. Data reviewed: rn vital signs, nurses notes, radiologic studies, plain films, and as a result, I will discharge patient. Counseling: I had a detailed discussion with the patient and/or guardian regarding the historical points, exam findings, and any diagnostic results supporting the discharge/admit diagnosis, radiology results, the need for outpatient follow up, to return to the emergency department if symptoms worsen or persist or if there are any questions or concerns that arise at home. Response to treatment: the patient's symptoms have mildly improved after treatment, and as a result, I will discharge patient. Special discussion: I discussed with the patient/guardian in detail that at this point there is no indication for admission to the hospital. It is understood, however, that if the symptoms persist or worsen the patient needs to return immediately for re-evaluation. ED course: X-ray images of the left hand/left wrist/right shoulder/right knee negative for acute fracture or dislocation per my interpretation.. 08/07 12:17 Order name: XRAY Wrist LEFT 3 view; Complete Time: 13:44 rn 08/07 12:17 Order name: XRAY Hand LEFT 3 View; Complete Time: 13:44 rn 08/07 12:17 Order name: XRAY Shoulder RIGHT 2 view; Complete Time: :44 rn 08/07 12:17 Order name: XRAY Knee RIGHT 3 view; Complete Time: 13:44 rn Administered Medications: No medications were administered Disposition Summary: 08/07/24 13:48 Discharge Ordered Notes: Location: Home rn Problem: new rn Symptoms: have improved rn Condition: Stable rn Diagnosis - Contusion of left wrist rn - Contusion of left hand rn - Contusion of right knee rn Followup: rn - With: Private Physician - When: As needed - Reason: Recheck today's complaints, Re-evaluation by your physician Discharge Instructions: - Discharge Summary Sheet rn - Contusion rn - Hand Contusion rn Forms: - Medication Reconciliation Form rn - Antibiotic litigation attorney - Prescription Opioid Use rn - Patient Portal Instructions rn - Leadership Thank You Letter rn Signatures: Dispatcher [employer] EDMS Rodrigue Beauchamp MD MD rn Baxter, Heather, RN RN Corrections: (The following items were deleted from the chart) 12:18 12:18 Hand Left 3 View+RAD.RAD.BRZ ordered. EDMS EDMS 12:18 12:18 Shoulder Right 2 View+RAD.RAD.BRZ ordered. EDMS EDMS 12:18 12:18 Knee Right 3 View+RAD.RAD.BRZ ordered. EDMS EDMS
--- NOTE | 2024-08-07 13:49 | ER ---
Nurse's Notes [facility] Name: Valerie Hart Age: 89 yrs Sex: Female : 1935 Arrival Date: 08/07/2024 Time: 11:27 Bed 9 Private MD: Diagnosis: Contusion of left wrist;Contusion of left hand;Contusion of right knee Presentation: 08/07 12:13 Chief complaint: Left wrist pain after mechanical fall from standing 2 days ago. hb Coronavirus screen: At this time, the client does not indicate any symptoms associated with coronavirus-19. Ebola Screen: No symptoms or risks identified at this time. Initial Sepsis Screen: Does the patient meet any 2 criteria? No. Patient's initial sepsis screen is negative. Does the patient have a suspected source of infection? No. Patient's initial sepsis screen is negative. Risk Assessment: Do you want to hurt yourself or someone else? Patient reports no desire to harm self or others. Onset of symptoms was August 05, 2024. 12:13 Method Of Arrival: Ambulatory hb 12:13 Acuity: FORD 4 hb Historical: - Allergies: 12:15 Alphagan P; hb 12:15 Rhopressa; hb 12:15 Kewidsw-Ggk-Nzt Reductase Inhibitors; hb - PMHx: 12:15 Diabetes - NIDDM; diabetes mellitus; Dementia; Hypertension; hb - PSHx: 12:15 cataract sx; Cholecystectomy; hip fracture; hb - Immunization history:: Adult Immunizations up to date. - Infectious Disease History:: Denies. - Social history:: Smoking status: Patient denies any tobacco usage or history of. - Family history:: not pertinent. - Hospitalizations: : No recent hospitalization is reported. Screenin:04 [facility] ED Fall Risk Assessment (Adult) History of falling in the last 3 months, ap3 including since admission Yes- single mechanical fall (1 pt) Confusion or Disorientation No (0 pts) Intoxicated or Sedated No (0 pts) Impaired Gait No (0 pts) Mobility Assist Device Used No (0 pt) Altered Elimination No (0 pt) Score/Fall Risk Level 0 - 2 = Low Risk Oriented to surroundings, Maintained a safe environment, Educated pt \T\ family on fall prevention, incl call for assistance when getting out of bed, Assessed \T\ reinforced patient's understanding of fall precautions, Hourly rounding (assess needs \T\ fall precautionary measures) done, Used ambulatory aids as needed (educated on \T\ assisted with). Abuse screen: Denies threats or abuse. Nutritional screening: No deficits noted. Tuberculosis screening: No symptoms or risk factors identified. Assessment: 14:04 General: Appears in no apparent distress. Behavior is calm, cooperative, appropriate ap3 for age. Pain: Complains of pain in left hand and right leg. Neuro: Level of Consciousness is awake, alert, obeys commands, Oriented to person, place, time, Appropriate for age. Cardiovascular: Patient's skin is warm and dry. Respiratory: Airway is patent Respiratory effort is even, unlabored, Respiratory pattern is regular, symmetrical. Vital Signs: 12:13 BP 191 / 74; Pulse 71; Resp 18; Temp 97.5; Pulse Ox 100% on R/A; Pain 5/10; hb 12:13 Pain Scale: Adult hb ED Course: 11:30 Patient arrived in ED. al6 11:34 Rodrigue Beauchamp MD is Attending Physician. rn 12:15 Triage completed. hb 12:15 Arm band placed on. hb 13:06 XRAY Wrist LEFT 3 view In Process Unspecified. EDMS 13:06 XRAY Hand LEFT 3 View In Process Unspecified. EDMS 13:06 XRAY Shoulder RIGHT 2 view In Process Unspecified. EDMS 13:06 XRAY Knee RIGHT 3 view In Process Unspecified. EDMS 14:03 Soha Cottrell, FIOR is Primary Nurse. ap3 14:05 Patient has correct armband on for positive identification. Provided Education on: ap3 discharge instructions. 14:05 No provider procedures requiring assistance completed. Patient did not have IV access ap3 during this emergency room visit. Administered Medications: No medications were administered Medication: 14:05 VIS not applicable for this client. ap3 Outcome: 13:48 Discharge ordered by . rn 14:05 Discharged to home ambulatory, with family, ap3 14:05 Condition: good 14:05 Discharge instructions given to patient, Instructed on discharge instructions, follow up and referral plans. Demonstrated understanding of instructions, follow-up care, 14:05 Patient left the ED. ap3 Signatures: Dispatcher [employer] EDMS Rodrigue Beauchamp MD MD rn Baxter, Heather, RN RN hb Prokisch, Amanda, RN RN ap3 Nimisha Pimentel al6
[2024-08-07 14:12] VITALS: BP 191/74; TEMP 97.5; O2SAT 100
== END 2024-08-07 14:05 | disposition home or self-care (01) ==
LOC: ER 11:27
DX: S60.212A Contusion of left wrist, initial encounter (principal); S60.222A Contusion of left hand, initial encounter; S80.01XA Contusion of right knee, initial encounter; W01.0XXA Fall on same level from slipping, tripping and stumbling without subsequent striking against object, initial encounter
CPT/HCPCS: 99282

== ENCOUNTER 2024-10-15 11:04 | Emergency (ER) | payer OTHER ==
[2024-10-15] MEDS ORDERED: KETOROLAC 30 MG/ML INJ ONE (13:01)
[2024-10-15 13:34] LABS: Absolute Basophils 0.1 K/uL (0-0.5); Absolute Lymphocytes (CBC) 1.5 K/uL (0.7-4.9); Absolute Monocytes 0.6 K/uL (0.1-1.3); Absolute Neutrophil 6.6 K/uL (1.8-8.0); Basophils % 0.9 % (0-1.3); Eosinophils % 0.5 % (0-4.4); Hematocrit 37.1 % (36.0-45.0); Lymphocytes % 16.6 % (15.3-44.8); MCH 30.5 pg (27.0-35.0); MCHC 34.9 g/dL (32.0-36.0); MCV 87.5 fL (80-100); MPV 9.2 fL (7.6-11.3); Monocytes % 6.9 % (3.3-12.3); Neutrophils % 75.1 % (41.7-73.7); Platelets 278 thou/uL (152-406); RBC Red Blood Cell Count 4.24 M/uL (3.86-4.86); Red Cell Distribution Width 13.7 % (12.1-15.2)
[2024-10-15 13:51] LABS: Albumin 2.9 g/dL (3.4-5.0); Albumin/Globulin Ratio 0.7 (1.1-1.8); Anion Gap 9.5 mEq/L (5.0-15.0); Bilirubin Total 0.7 mg/dL (0.2-1.0); Globulin 4.1 g/dL (2.3-3.5); Potassium 3.5 mEq/L (3.5-5.1)
--- NOTE | 2024-10-15 14:48 | RAD REPORT ---
EXAMINATION: Facial Bones W Con Mpr CLINICAL INDICATION: Female, 89 years old. right face pain -- assess dental and paratid TECHNIQUE: Axial images were obtained through the facial bones and orbits with intravenous contrast. Sagittal and coronal reconstructions were created from the data. One or more of the following dose reduction techniques were used: Automated exposure control, adjustment of the mA and/or kV according to patient size, and/or iterative reconstruction. Unless otherwise specified, incidental findings do not require dedicated imaging follow-up. [id number]. COMPARISON: 10/29/2023 FINDINGS: SOFT TISSUE: Mild right facial skin thickening and subcutaneous edema. Atrophic right subinsular gla nd. BONES: There is the reverse process at the anterior maxilla that is located at the expected location of the central incisors, both lateral and size, and at the right maxillary canine. There is an enhancing mass or fluid collection that measures approximately 2.8 x 2.2 cm. There is underlying bony erosion. ORBITS: The globes are intact. No intraorbital hemorrhage or mass. SINUSES: The paranasal sinuses and tympanomastoid cavities are predominantly clear. BRAIN: No acute abnormalities in the visualized intracranial structures. IMPRESSION: Destructive process at the anterior aspect of the maxilla at the midline with underlying bony erosion could be secondary to either an odontogenic abscess and osteomyelitis versus a mass.
[2024-10-15] MEDS ORDERED: AMPICILLIN/SULBACT 1.5GM VIAL ONE (14:57)
[2024-10-15] MEDS ORDERED: NA CHLORIDE 0.9% 100 ML ONE (14:57)
--- NOTE | 2024-10-15 15:15 | EDPHYS ---
Physician Documentation [facility] Name: Valerie Hart Age: 89 yrs Sex: Female : 1935 Arrival Date: 10/15/2024 Time: 11:04 Bed 10 Private MD: ED Physician Eulogio Brown HPI: 10/15 13:14 This 89 yrs old Female presents to ER via Ambulatory with complaints of Facial sp3 Swelling. 13:14 89-year-old female with history of dementia, diabetes, hypertension presents with sp3 right-sided facial swelling and pain extending from the mandibular line to the TMJ joint and parotid gland area. ROS, history and physical limited secondary to dementia. Family states that this been going on for the last several days and she keeps "slapping her lips". Patient cannot comment on saliva production quantity.. Historical: - Allergies: 11:27 Alphagan P; cm10 11:27 Rhopressa; cm10 11:27 Xnmgjjl-[id number]-Dvn Reductase Inhibitors; cm10 - Home Meds: 11:27 amlodipine 5 mg tablet daily [Active]; aspirin 81 mg Oral tablet 1 tab daily [Active]; cm10 donepezil 5 mg Oral tablet daily [Active]; Edarbi 80 mg oral tablet [Active]; ezetimibe 10 mg Oral tablet nightly [Active]; travoprost 0.004 % ophthalmic (eye) drops daily [Active]; Humalog Sub-Q via insulin pump [Active]; - PMHx: 11:27 Dementia; Diabetes - NIDDM; diabetes mellitus; Hypertension; cm10 - PSHx: 11:27 cataract sx; Cholecystectomy; hip fracture; cm10 - Immunization history:: Adult Immunizations up to date. - Infectious Disease History:: Denies. - Social history:: Smoking status: Patient denies any tobacco usage or history of. ROS: 13:15 Constitutional: Negative for fever, chills, and weight loss, Eyes: Negative for injury, sp3 pain, redness, and discharge, Neck: Negative for injury, pain, and swelling, Cardiovascular: Negative for chest pain, palpitations, and edema, Respiratory: Negative for shortness of breath, cough, wheezing, and pleuritic chest pain, Abdomen/GI: Negative for abdominal pain, nausea, vomiting, diarrhea, and constipation, Back: Negative for injury and pain, MS/Extremity: Negative for injury and deformity, Skin: Negative for injury, rash, and discoloration, Neuro: Negative for headache, weakness, numbness, tingling, and seizure, Psych: Negative for depression, anxiety, suicide ideation, homicidal ideation, and hallucinations, Allergy/Immunology: Negative for hives, rash, and allergies, Endocrine: Negative for neck swelling, polydipsia, polyuria, polyphagia, and marked weight changes, 13:15 All other systems are negative, Exam: 13:15 Constitutional: This is a well developed, well nourished patient who is awake, alert, sp3 and in no acute distress. Eyes: Pupils equal round and reactive to light, extra-ocular motions intact. Lids and lashes normal. Conjunctiva and sclera are non-icteric and not injected. Cornea within normal limits. Periorbital areas with no swelling, redness, or edema. ENT: Nares patent. No nasal discharge, no septal abnormalities noted. External auditory canals are clear. Oropharynx with no redness, swelling, or masses, exudates, or evidence of obstruction, uvula midline. Mucous membranes moist. Neck: Trachea midline, no thyromegaly or masses palpated, and no cervical lymphadenopathy. Supple, full range of motion without nuchal rigidity, or vertebral point tenderness. No Meningismus. Chest/axilla: Normal chest wall appearance and motion. Nontender with no deformity. No lesions are appreciated. Cardiovascular: Regular rate and rhythm with a normal S1 and S2. No gallops, murmurs, or rubs. Normal PMI, no JVD. No pulse deficits. Respiratory: Lungs have equal breath sounds bilaterally, clear to auscultation and percussion. No rales, rhonchi or wheezes noted. No increased work of breathing, no retractions or nasal flaring. Abdomen/GI: Soft, non-tender, with normal bowel sounds. No distension or tympany. No guarding or rebound. No evidence of tenderness throughout. Back: No spinal tenderness. No costovertebral tenderness. Full range of motion. Skin: Warm, dry with normal turgor. Normal color with no rashes, no lesions, and no evidence of cellulitis. 13:15 Head/face: Swelling noted from the mandible area extending superiorly towards the TMJ joint and parotid gland.. 13:15 ENT: Saliva amount generally normal on exam. No significant dental findings. Mild gum sp3 irritation noted.. Vital Signs: 11:26 BP 171 / 79; Pulse 64; Resp 16; Temp 98.2; Pulse Ox 100% on R/A; Weight 58.97 kg; cm10 Height 5 ft. 1 in. ; 15:26 BP 177 / 62; Pulse 55; Resp 16; Pulse Ox 100% ; Pain 2/10; ll1 11:26 Body Mass Index 24.56 (58.97 kg, 154.94 cm) cm10 15:26 Pain Scale: Adult ll1 MDM: 11:35 Medical Screening Exam initiated sp3 13:16 Data reviewed: vital signs, nurses notes, lab test result(s), radiologic studies. ED sp3 course: 39-year-old female with right-sided facial swelling. Differential diagnosis includes dental infection, TMJ syndrome, parotiditis and/or parotid gland obstructions sialolithiasis. Workup will include CT scan of the face, general labs and ketorolac 50 mg by IV.. 15:12 ED course: Labs with no significant abnormality. CT demonstrates probable infection sp3 emanating from the dental structures versus destructive process. White count normal. We will treat with antibiotics and have patient follow-up with dentistry to further elucidate. Patient will also be sent to hematology for additional potential workup.. 10/15 12:52 Order name: CBC with Diff; Complete Time: 13:58 sp3 10/15 12:52 Order name: CMP; Complete Time: 13:58 sp3 10/15 12:52 Order name: CT Facial Bones W/ Con \\T\\ Mpr; Complete Time: 14:54 sp3 10/15 12:52 Order name: IV Saline Lock; Complete Time: 13:27 sp3 10/15 12:53 Order name: Labs collected and sent; Complete Time: 13:27 sp3 Administered Medications: 13:27 Drug: Ketorolac IVP 15 mg IVP once Route: IVP; Site: right antecubital; ll1 15:05 Follow up: Response: No adverse reaction; Pain is decreased ll1 15:05 Drug: Ampicillin-Sulbactam Sodium IVPB 1.5 grams IVPB once over 30 mins; (mix in 100 mL ll1 NS) Route: IVPB; Infused Over: 30 mins; Site: right antecubital; 15:40 Follow up: Response: No adverse reaction; IV Status: Completed infusion; IV Intake: ll1 100ml Disposition Summary: 10/15/24 15:14 Discharge Ordered Notes: Location: Home sp3 Condition: Stable sp3 Diagnosis - Patient swelling, dental abscess sp3 Followup: sp3 - With: Private Physician - When: Upon discharge from the Emergency Department - Reason: Continuance of care Discharge Instructions: - Discharge Summary Sheet sp3 - Dental Abscess sp3 Forms: - Medication Reconciliation Form sp3 - Antibiotic Education sp3 - Prescription Opioid Use sp3 - Patient Portal Instructions sp3 - Leadership Thank You Letter sp3 Prescriptions: - Augmentin 875-125 mg Oral Tablet - take 1 tablet ORAL route every 12 hours for 10 days; 20 tablet; Refills: 0, sp3 Product Selection Permitted - Tramadol 50 mg Oral Tablet - take 1 tablet ORAL route every 8 hours as needed; 12 tablet; Refills: 0, sp3 Product Selection Permitted Signatures: Dispatcher [employer] EDMS Trinh Aviles RN RN ll1 Eulogio Brown MD MD sp3 Magdalena Hickey RN RN cm10 Corrections: (The following items were deleted from the chart) 15:13 15:12 ED course: Labs with no significant abnormality. CT demonstrates probable sp3 infection emanating from the dental structures versus destructive process. White count normal. We will treat with antibiotics and have patient follow-up with dentistry to further elucidate.. sp3
--- NOTE | 2024-10-15 15:15 | ER ---
Nurse's Notes [facility] Name: Valerie Hart Age: 89 yrs Sex: Female : 1935 Arrival Date: 10/15/2024 Time: 11:04 Bed 10 Private MD: Diagnosis: Patient swelling, dental abscess Presentation: 10/15 11:26 Chief complaint: Patient states: right cheek swelling onset Wednesday. Coronavirus screen: cm10 Client denies travel out of the [place] in the last 14 days. Ebola Screen: Patient denies travel to an Ebola-affected area in the 21 days before illness onset. Initial Sepsis Screen: Does the patient meet any 2 criteria? No. Patient's initial sepsis screen is negative. Does the patient have a suspected source of infection? No. Patient's initial sepsis screen is negative. Risk Assessment: Do you want to hurt yourself or someone else? Patient reports no desire to harm self or others. Onset of symptoms was October 15, 2024. 11:26 Method Of Arrival: Ambulatory [facility] 11:26 Acuity: FORD 3 cm10 Triage Assessment: 11:29 Pain: Complains of pain in right jaw. Neuro: No deficits noted. Level of Consciousness cm10 is awake, alert. Respiratory: No deficits noted. Airway is patent Respiratory effort is even, unlabored, Respiratory pattern is regular, symmetrical. Derm: Swelling noted to right cheek. Historical: - Allergies: 11:27 Alphagan P; cm10 11:27 Rhopressa; cm10 11:27 Zlxebsj-Rub-Mms Reductase Inhibitors; cm10 - Home Meds: 11:27 amlodipine 5 mg tablet daily [Active]; aspirin 81 mg Oral tablet 1 tab daily [Active]; cm10 donepezil 5 mg Oral tablet daily [Active]; Edarbi 80 mg oral tablet [Active]; ezetimibe 10 mg Oral tablet nightly [Active]; travoprost 0.004 % ophthalmic (eye) drops daily [Active]; Humalog Sub-Q via insulin pump [Active]; - PMHx: 11:27 Dementia; Diabetes - NIDDM; diabetes mellitus; Hypertension; cm10 - PSHx: 11:27 cataract sx; Cholecystectomy; hip fracture; cm10 - Immunization history:: Adult Immunizations up to date. - Infectious Disease History:: Denies. - Social history:: Smoking status: Patient denies any tobacco usage or history of. Screenin:26 [facility] ED Fall Risk Assessment (Adult) History of falling in the last 3 months, ll1 including since admission No falls in past 3 months (0 pts) Confusion or Disorientation Yes (5 pts) Intoxicated or Sedated No (0 pts) Impaired Gait Yes (1 pt) Mobility Assist Device Used Yes (1 pt) Altered Elimination No (0 pt) Score/Fall Risk Level 3 or more points = High Risk Maintained a safe environment, Hourly rounding (assess needs \T\ fall precautionary measures) done, Used ambulatory aids as needed (educated on \T\ assisted with). Abuse screen: Denies threats or abuse. Nutritional screening: No deficits noted. Tuberculosis screening: No symptoms or risk factors identified. Assessment: 12:25 General: Appears in no apparent distress. Behavior is calm, cooperative, appropriate ll1 for age. Pain: Complains of pain in right jaw Quality of pain is described as aching. Musculoskeletal: Reports pain in right jaw. 15:26 Reassessment: No changes from previously documented assessment. Patient and/or family ll1 updated on plan of care and expected duration. Pain level reassessed. Patient states feeling better. Vital Signs: 11:26 BP 171 / 79; Pulse 64; Resp 16; Temp 98.2; Pulse Ox 100% on R/A; Weight 58.97 kg; cm10 Height 5 ft. 1 in. ; 15:26 BP 177 / 62; Pulse 55; Resp 16; Pulse Ox 100% ; Pain 2/10; ll1 11:26 Body Mass Index 24.56 (58.97 kg, 154.94 cm) cm10 15:26 Pain Scale: Adult ll1 ED Course: 11:08 Patient arrived in ED. sj2 11:10 Eulogio Brown MD is Attending Physician. sp3 11:27 Triage completed. cm10 11:29 Arm band placed on left wrist. Patient placed in waiting room. cm10 12:22 Patient placed in an exam room, on a stretcher. ll1 12:23 Provided Education on: ER procedures and process. ll1 12:23 Patient has correct armband on for positive identification. Bed in low position. Call ll1 light in reach. Cardiac monitoring not applicable on this patient. 13:27 Stefan, Lynsay, RN is Primary Nurse. ll1 13:27 Initial lab(s) drawn, by me, sent to lab. Inserted saline lock: 22 gauge in right ll1 antecubital area, using aseptic technique. Blood collected. Flushed with 10 mL NS. 14:15 CT Facial Bones W/ Con \T\ Mpr In Process Unspecified. EDMS 15:40 No provider procedures requiring assistance completed. IV discontinued, intact, ll1 bleeding controlled, No redness/swelling at site. Pressure dressing applied. Administered Medications: 13:27 Drug: Ketorolac IVP 15 mg IVP once Route: IVP; Site: right antecubital; ll1 15:05 Follow up: Response: No adverse reaction; Pain is decreased ll1 15:05 Drug: Ampicillin-Sulbactam Sodium IVPB 1.5 grams IVPB once over 30 mins; (mix in 100 mL 1 NS) Route: IVPB; Infused Over: 30 mins; Site: right antecubital; 15:40 Follow up: Response: No adverse reaction; IV Status: Completed infusion; IV Intake: ll1 100ml Medication: 15:27 VIS not applicable for this client. 1 Intake: 15:40 IV: 100ml; Total: 100ml. 1 Outcome: 15:14 Discharge ordered by . sp3 15:40 Discharged to home via wheelchair, [facility] 15:40 Condition: stable 15:40 Discharge instructions given to patient, family, Instructed on discharge instructions, follow up and referral plans. medication usage, Demonstrated understanding of instructions, follow-up care, medications, Prescriptions given X 2, 15:41 Patient left the ED. 1 Signatures: Dispatcher [employer] EDDE Trinh Aviles RN RN ll1 Eulogio Brown MD MD sp3 Magdalena Hickey RN RN cm10 Nilesh Langford 2
[2024-10-15 15:48] VITALS: TEMP 98.2; O2SAT 100
[2024-10-15 15:50] VITALS: BP 177/62
== END 2024-10-15 15:41 | disposition home or self-care (01) ==
LOC: ER 11:04
DX: K04.7 Periapical abscess without sinus (principal)
CPT/HCPCS: 96365; 85025; 36415; 80053; 70487; 76377; 96375; 99284; Q9967; J0295